=== PATIENT | male | born 1935 | race Caucasian/White ===

== ENCOUNTER 2018-04-21 02:56 | Inpatient (IN) | payer OTHER ==
[~2018-04-21] VITALS: Ht 177.8 cm; Wt 76.9 kg
[2018-04-21] VITALS (8 sets, daily range): BP systolic 116–141; BP diastolic 59–75; PULSE 54–103; TEMP 36.6–37.3; O2SAT 93–97; BMI 25.3
[~2018-04-21 02:56] MED LIST: ATEN50TA8 PO; CLR10 PO; SIMV80TA7 PO; TRAM-10 PO; ZOLP10TA PO
[2018-04-21] MEDS ORDERED: SODIUM CHLORIDE 0.9% 500ML 500 ML IV STA (03:16)
[2018-04-21] MEDS ORDERED: ONDANSETRON INJ 2 MG/ML 2 ML VIAL IV STA ×3 (03:16→06:02)
--- NOTE | 2018-04-21 03:24 | EMERGENCY ROOM VISIT NOTE ---
History First contact with patient: 03:09 Chief Complaint: ABDOMINAL PAIN Stated Complaint: LEG PAIN,ABD PAIN Nursing Triage Summary: pt reports started with R side abdominal pain around 1800 vomitted X 2 around 2100 denies radiation of pain, denies urinary sx History of Present Illness The patient is a 82 year old male who presents to the Emergency Room for evaluation of RLQ abdominal pain. Notes that for the last week he has been having pain in the RLQ. Gradually worsening. Nothing makes better nor worse. Movement doesn't change pain. Associated vomiting this evening. After vomiting he developed headache. Currently without pain but notes pain sometimes comes in waves. He took Tramadol earlier in the night with improvement in pain. Denies trauma, injuries, falls. Has had a bit of diarrhea the last few days. No cp, sob, neck pain, leg swelling, rashes, fevers, urinary symptoms. Denies previous issues with this pain. Previous rectal surgery and radiation for anal cancer. Review of Systems See HPI for pertinent positives & negatives. A total of 10 systems reviewed and were otherwise negative. Past Medical/Surgical History Medical Problems: (1) Cancer Surgical history: Rectal/anal cancer removal Family History Cancer Hypertension Social History Smoking Status: Former Smoker Alcohol Use: none Marital Status: Housing Status: lives with significant other Occupation Status: retired Current/Historical Medications Scheduled Atenolol (Tenormin), 50 MG PO DAILY Cholecalciferol (Vitamin D3), 1 CAP PO DAILY Fish Oil ([place]-3), 1 CAP PO DAILY Folic Acid (Folvite), 2 MG PO DAILY Loratadine (Claritin), 10 MG PO DAILY Simvastatin (Zocor), 40 MG PO QPM Scheduled PRN Polyethylene Glycol 3350 (Miralax), 17 GM PO DAILY PRN for Constipation Tramadol (Ultram), 50 MG PO Q4 PRN for Pain Zolpidem Tartrate (Ambien), 10 MG PO HS PRN for Sleep Physical Exam Vital Signs Date Time Temp Pulse Resp B/P (MAP) Pulse Ox O2 Delivery O2 Flow Rate FiO2 04/21/18 07:19 49 20 152/78 96 Room Air 04/21/18 06:34 50 18 158/80 95 Room Air 04/21/18 05:36 50 18 137/87 94 Room Air 04/21/18 04:19 63 20 163/76 96 Room Air 04/21/18 03:06 36.8 62 20 176/73 98 Room Air Physical Exam GENERAL: Patient is elderly appearing and in mild distress. he appears to have some mild dementia ( answers many of his questions) EYES: No scleral icterus, unremarkable pupils. ENT: Mucous membranes moist, no nasal congestion. NECK: No masses appreciated, no meningismus, trachea is midline. RESPIRATORY: No dyspnea. Clear to auscultation and equal bilaterally. No wheeze , no rhonchi. CARDIOVASCULAR: Regular rate and rhythm. No murmurs, rubs, gallops appreciated. GASTROINTESTINAL: Vague RLQ TTP otherwise, abdomen soft, nontender, no peritonitis. Bowel sounds positive. No masses appreciated. BACK: No midline tenderness, no CVA tenderness EXTREMITIES: Normal motion all extremities, no cyanosis, no edema. NEUROLOGIC: Alert and oriented, no acute motor or sensory deficits, no focal weakness, Talks out of left side of mouth though no facial droop nor other CN deficits. SKIN: No rash, no jaundice, no diaphoresis. Medical Decision & Procedures ER Provider Diagnostic Interpretation: Stat Rad Radiology results and stated below per my review and radiologist interpretation: CT HEAD: No acute intracranial process. Age-related changes. Sclerosis of the right mastoid air cells. Radiologist: Alma Rosa Barron M.D. CT ABDOMEN & PELVIS With Contrast: Small left inguinal hernia containing loop of small bowel on image 78 of series 2. The more proximal intra-abdominal small bowel loops are moderately dilated with air-fluid levels, consistent with secondary obstruction. Findings are concerning for incarceration. Correlate with clinical findings. The more distal small bowel loops are relatively decompressed. Diverticulosis. Normal appendix. No free air or fluid collections. Trace amount of free fluid. Large left renal cyst. Radiologist: Alma Rosa Barron M.D. Laboratory Results 04/21/18 03:25 Red Blood Count 4.58, Mean Corpuscular Volume 94.1, Mean Corpuscular Hemoglobin 31.7, Mean Corpuscular Hemoglobin Concent 33.6, Mean Platelet Volume 11.2, Neutrophils (%) (Auto) 80.0, Lymphocytes (%) (Auto) 12.8, Monocytes (%) (Auto) 6.3, Eosinophils (%) (Auto) 0.4, Basophils (%) (Auto) 0.3, Neutrophils # (Auto) 8.30, Lymphocytes # (Auto) 1.33, Monocytes # (Auto) 0.65, Eosinophils # (Auto) 0.04, Basophils # (Auto) 0.03 04/21/18 03:25 Test 04/21/18 03:25 04/21/18 03:29 04/21/18 07:09 White Blood Count 10.37 K/uL (4.8-10.8) Red Blood Count 4.58 M/uL (4.7-6.1) Hemoglobin 14.5 g/dL (14.0-18.0) Hematocrit 43.1 % (42-52) Mean Corpuscular Volume 94.1 fL (80-100) Mean Corpuscular Hemoglobin 31.7 pg (25-34) Mean Corpuscular Hemoglobin Concent 33.6 g/dl (32-36) Platelet Count 190 K/uL (130-400) Mean Platelet Volume 11.2 fL (7.4-10.4) Neutrophils (%) (Auto) 80.0 % Lymphocytes (%) (Auto) 12.8 % Monocytes (%) (Auto) 6.3 % Eosinophils (%) (Auto) 0.4 % Basophils (%) (Auto) 0.3 % Neutrophils # (Auto) 8.30 K/uL (1.4-6.5) Lymphocytes # (Auto) 1.33 K/uL (1.2-3.4) Monocytes # (Auto) 0.65 K/uL (0.11-0.59) Eosinophils # (Auto) 0.04 K/uL (0-0.5) Basophils # (Auto) 0.03 K/uL (0-0.2) RDW Standard Deviation 44.4 fL (36.4-46.3) RDW Coefficient of Variation 12.9 % (11.5-14.5) Immature Granulocyte % (Auto) 0.2 % Immature Granulocyte # (Auto) 0.02 K/uL (0.00-0.02) Prothrombin Time 10.2 SECONDS (9.0-12.0) Prothromb Time International Ratio 1.0 (0.9-1.1) Activated Partial Thromboplast Time 25.9 SECONDS (21.0-31.0) Partial Thromboplastin Ratio 1.0 Est Creatinine Clear Calc Drug Dose 59.2 ml/min Estimated GFR () 80.5 Estimated GFR (Non- 69.4 BUN/Creatinine Ratio 12.9 (10-20) Calcium Level 9.2 mg/dl (8.5-10.1) Magnesium Level 2.2 mg/dl (1.8-2.4) Total Bilirubin 0.8 mg/dl (0.2-1) Direct Bilirubin 0.2 mg/dl (0-0.2) Aspartate Amino Transf (AST/SGOT) 14 U/L (15-37) Alanine Aminotransferase (ALT/SGPT) 20 U/L (12-78) Alkaline Phosphatase 73 U/L (45-117) Total Protein 7.8 gm/dl (6.4-8.2) Albumin 4.0 gm/dl (3.4-5.0) Lipase 308 U/L (73-393) Bedside Hemoglobin 14.6 g/dl (14.0-18.0) Bedside Hematocrit 43 % (42-52) Bedside Sodium 142 mEq/L (135-144) Bedside Potassium 3.9 mEq/L (3.3-5.0) Bedside Chloride 98 mEq/L (101-112) Bedside Total CO2 32 mEq/l (24-31) Anion Gap 17.0 mmol/L (16-25) Bedside Blood Urea Nitrogen 13 mg/dl (7-18) Bedside Creatinine 1.0 mg/dl (0.6-1.3) Bedside Glucose (other) 137 mg/dl (70-99) Bedside Ionized Calcium (Miko) 1.13 mmol/l (1.12-1.32) Medications Administered Medications (Trade) Dose Ordered Sig/Moses Route Start Time Stop Time Status Last Admin Dose Admin Sodium Chloride 500 ml @ 999 mls/hr Q31M STAT IV 04/21/18 03:16 04/21/18 03:46 DC 04/21/18 03:22 999 MLS/HR Ondansetron HCl (Zofran Inj) 4 mg NOW STAT IV 04/21/18 03:16 04/21/18 03:19 DC 04/21/18 03:21 4 MG Ondansetron HCl (Zofran Inj) 4 mg NOW STAT IV 04/21/18 04:14 04/21/18 04:15 DC 04/21/18 04:17 4 MG Lorazepam (Ativan Inj) 0.25 mg NOW STAT IV 04/21/18 04:53 04/21/18 04:54 DC 04/21/18 05:01 0.25 MG Lorazepam (Ativan Inj) 0.5 mg NOW STAT IV 04/21/18 05:26 04/21/18 05:27 DC 04/21/18 05:32 0.5 MG Ondansetron HCl (Zofran Inj) 4 mg NOW STAT IV 04/21/18 06:02 04/21/18 06:03 DC 04/21/18 06:17 4 MG Medical Decision Differential: Gastroenteritis, Food Borne, Esophageal Perforation, , Electrolyte Abnormality, Dehydration, Intraabdominal Infection, UTI/ Pyelonephritis, Bowel Obstruction, Biliary Pathology, amongst other pathology entertained. 82 yr old male arrives with persistent vomiting over last few hours. He also notes some abdominal pain. Talking to him he is clearly a bit demented if not just very tired and I suspect has a bit of confusion as well. Abdominal exam with hyperactive bowel sounds though no tenderness. Continuous vomiting despite zofran, then ativan. Given NG Tube after my review of CT reveals obstruction. CXR with proper placement. Large NG outs as well as vomiting around tube. Continued nausea/vomiting and given further ativan. CT read as SBO with incarcerated left inguinal hernia. He has no mass nor TTP of LLQ nor inguinal area. Continued vomiting. Protecting airway. I discussed this with Dr Noonan who notes he will come evaluate patient further. KUB ordered to eval further and just prior to this he pulled out NG Tube. Tube ~10 cm too high though Dr Noonan at bedside and advised leaving it for now as going to go to OR. We discussed intubation but given he is protecting airway and finally falling asleep felt that holding off until OR is reasonable. Patient with many repeat evaluations throughout [facility]. 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 No other evidence of stroke and given clearly has SBO I thnk this is probably his baseline. He did mention headache after vomiting thus the CT head which was negative. Head Trauma GCS Score: 15 Medication Reconcilliation Current Medication List: was personally reviewed by me Blood Pressure Screening Patient's blood pressure: Normal blood pressure Impression Primary Impression: Incarcerated left inguinal hernia Additional Impressions: Small bowel obstruction Emesis, persistent I have personally spent greater than 30 minutes of critical care time in the direct management of this patient. This was a life/limb threatening event. This includes time spent evaluating patient, direct bedside care, chart review, placing orders, interpretation of diagnostic studies, discussion with consultants, patient, and family members, as well as other required patient management activities. This 30 minutes is in excess of all separately billable procedures. Departure Information Referrals Seamus Luna M.D. (PCP) Patient Instructions My [facility] Problem Qualifiers
[2018-04-21] MEDS ORDERED: OPTIRAY 320 IV PRN (03:30)
[2018-04-21 03:35] LABS: BASO % 0.3 %; BASO ABS # 0.03 K/uL (0-0.2); EOS % 0.4 %; EOS ABS # 0.04 K/uL (0-0.5); HEMATOCRIT 43.1 % (42-52); HEMOGLOBIN 14.5 g/dL (14.0-18.0); IG# 0.02 K/uL (0.00-0.02); LYMPH % 12.8 %; LYMPH ABS # 1.33 K/uL (1.2-3.4); MEAN CELL VOLUME 94.1 fL (80-100); MEAN CORPUSCULAR HEMOGLOBIN 31.7 pg (25-34); MEAN CORPUSCULAR HGB CONC 33.6 g/dl (32-36); MEAN PLATELET VOLUME 11.2 fL (7.4-10.4); MONO % 6.3 %; MONO ABS # 0.65 K/uL (0.11-0.59); PLATELET COUNT 190 K/uL (130-400); RED CELL DISTRIBUTION WIDTH CV 12.9 % (11.5-14.5); RED CELL DISTRIBUTION WIDTH SD 44.4 fL (36.4-46.3); WHITE BLOOD COUNT 10.37 K/uL (4.8-10.8)
[2018-04-21 03:44] LABS: ISTAT IONIZED CALCIUM 1.13 mmol/l (1.12-1.32); ISTAT POTASSIUM 3.9 mEq/L (3.3-5.0)
[2018-04-21] MEDS ORDERED: CHOL2000 PO (03:51)
[2018-04-21] MEDS ORDERED: FOLI1TAB8 PO (03:51)
[2018-04-21] MEDS ORDERED: POLY335019 PO (03:51)
[2018-04-21] MEDS ORDERED: OMEG10007 PO (03:51)
[2018-04-21 04:02] LABS: CALCIUM 9.2 mg/dl (8.5-10.1); CREATININE 1.01 mg/dl (0.60-1.40); POTASSIUM 3.8 mmol/L (3.5-5.1); PTT PATIENT 25.9 SECONDS (21.0-31.0); TOTAL PROTEIN 7.8 gm/dl (6.4-8.2)
[2018-04-21] MEDS ORDERED: LORAZEPAM 2 MG/ML 1 ML VIAL IV STA ×2 (04:53→05:26)
[2018-04-21] MEDS ORDERED: CEFAZOLIN 2000MG IV PUSH 15 ML IV SCH (06:00)
--- NOTE | 2018-04-21 07:00 | Surgery Consultation ---
Consultation Date of Consultation: Apr 21, 2018. Attending Physician: History of Present Illness pt is a 82 year old male who presents to ER with one week history lower abdominal pain, pt started with nausea and vomiting last 12 hours, pt's is at bed side, pt has mild dementia history, last BM yesterday, and also pt had diarrhea 3 days ago. pt denies fever, no chest pain, pt had dx anal cancer with radiation and chemo treatment 8 years ago. pt denies any bloody stool, Family History Cancer Hypertension Social History Smoking Status: Former Smoker Smokeless Tobacco Use: No Alcohol Use: none Drug Use: none Marital Status: Housing Status: lives with significant other Occupation Status: retired Allergies Coded Allergies: No Known Allergies (Unverified , 04/21/18) Home Medications Scheduled Atenolol (Tenormin), 50 MG PO DAILY Cholecalciferol (Vitamin D3), 1 CAP PO DAILY Fish Oil ([place]-3), 1 CAP PO DAILY Folic Acid (Folvite), 2 MG PO DAILY Loratadine (Claritin), 10 MG PO DAILY Simvastatin (Zocor), 40 MG PO QPM Scheduled PRN Polyethylene Glycol 3350 (Miralax), 17 GM PO DAILY PRN for Constipation Tramadol (Ultram), 50 MG PO Q4 PRN for Pain Zolpidem Tartrate (Ambien), 10 MG PO HS PRN for Sleep Current Inpatient Medications Current Inpatient Medications Medications (Trade) Dose Ordered Sig/Moses Route Start Time Stop Time Status Last Admin Dose Admin Ioversol (Optiray 320) 100 ml UD PRN IV 04/21/18 03:30 04/25/18 03:29 Review of Systems Constitutional: No fever, No chills, No sweats, No weight loss, No weakness, No fatigue, No problem reported Eyes: No worsening of vision, No eye pain, No redness, No discharge, No diplopia, No problem reported ENT: No hearing loss, No unusual epistaxis, No nasal symptoms, No sore throat, No tinnitus, No dental problems, No trouble swallowing, No problem reported Respiratory: No cough, No sputum, No wheezing, No shortness of breath, No dyspnea on exertion, No dyspnea at rest, No hemoptysis, No problem reported Cardiovascular: No chest pain, No orthopnea, No PND, No edema, No claudication , No palpitations, No problem reported Abdomen: + pain, + nausea, + vomiting, + problem reported (anal cancer) Musculoskeletal: No joint pain, No muscle pain, No swelling, No calf pain, No problem reported Genitourinary - Male: No hematuria, No dysuria, No urinary frequency, No urinary urgency, No urinary hesitancy, No urinary retention, No urinary incontinence, No penile discharge, No lesions, No impotence, No problem reported Neurologic: + memory loss, + problem reported (mild dementia), No paralysis, No weakness, No numbness/tingling, No vertigo, No balance problems Psychiatric: No depression symptoms, No anhedonism, No anxiety, No insomnia, No substance abuse, No problem reported Endocrine: No fatigue, No excessive thirst, No excessive urination, No problem reported Hematologic / Lymphatic: No abnormal bleeding/bruising, No clotting problems, No swollen lymph nodes, No night sweats, No problem reported Integumentary: No rash, No itch, No new/changing skin lesions, No color change , No bleeding, No problem reported Allergic / Immunologic: No environmental allergies, No seasonal allergies, No pet sensitivities, No food allergies, No hives, No frequent infections, No poor healing, No prolonged convalescence, No problem reported Physical Exam Date Time Temp Pulse Resp B/P (MAP) Pulse Ox O2 Delivery O2 Flow Rate FiO2 04/21/18 05:36 50 18 137/87 94 Room Air 04/21/18 04:19 63 20 163/76 96 Room Air 04/21/18 03:06 36.8 62 20 176/73 98 Room Air General Appearance: WD/WN, + mild distress Head: normocephalic Eyes: normal inspection ENT: normal ENT inspection Neck: supple, no JVD Respiratory/Chest: chest non-tender, lungs clear, normal breath sounds, no respiratory distress Cardiovascular: regular rate, rhythm, no edema, no gallop, no JVD, no murmur Abdomen/GI: normal bowel sounds, soft, no pulsatile mass, normal rectal exam, + tenderness (at LLQ, possible mass on Left inguinal area, size 3x3cm, not reducible) Extremities/Musculoskelatal: normal inspection, no calf tenderness, normal capillary refill Neurologic/Psych: alert, normal mood/affect Skin: normal color, warm/dry, no rash Lymphatic: no adenopathy Laboratory Results Last 24 Hours Test 04/21/18 03:25 04/21/18 03:29 White Blood Count 10.37 K/uL Red Blood Count 4.58 M/uL Hemoglobin 14.5 g/dL Hematocrit 43.1 % Mean Corpuscular Volume 94.1 fL Mean Corpuscular Hemoglobin 31.7 pg Mean Corpuscular Hemoglobin Concent 33.6 g/dl Platelet Count 190 K/uL Mean Platelet Volume 11.2 fL Neutrophils (%) (Auto) 80.0 % Lymphocytes (%) (Auto) 12.8 % Monocytes (%) (Auto) 6.3 % Eosinophils (%) (Auto) 0.4 % Basophils (%) (Auto) 0.3 % Neutrophils # (Auto) 8.30 K/uL Lymphocytes # (Auto) 1.33 K/uL Monocytes # (Auto) 0.65 K/uL Eosinophils # (Auto) 0.04 K/uL Basophils # (Auto) 0.03 K/uL RDW Standard Deviation 44.4 fL RDW Coefficient of Variation 12.9 % Immature Granulocyte % (Auto) 0.2 % Immature Granulocyte # (Auto) 0.02 K/uL Prothrombin Time 10.2 SECONDS Prothromb Time International Ratio 1.0 Activated Partial Thromboplast Time 25.9 SECONDS Partial Thromboplastin Ratio 1.0 Sodium Level 139 mmol/L Potassium Level 3.8 mmol/L Chloride Level 103 mmol/L Carbon Dioxide Level 31 mmol/L Anion Gap 5.0 mmol/L 17.0 mmol/L Blood Urea Nitrogen 13 mg/dl Creatinine 1.01 mg/dl Est Creatinine Clear Calc Drug Dose 59.2 ml/min Estimated GFR () 80.5 Estimated GFR (Non- 69.4 BUN/Creatinine Ratio 12.9 Random Glucose 132 mg/dl Calcium Level 9.2 mg/dl Magnesium Level 2.2 mg/dl Total Bilirubin 0.8 mg/dl Direct Bilirubin 0.2 mg/dl Aspartate Amino Transf (AST/SGOT) 14 U/L Alanine Aminotransferase (ALT/SGPT) 20 U/L Alkaline Phosphatase 73 U/L Total Protein 7.8 gm/dl Albumin 4.0 gm/dl Lipase 308 U/L Bedside Hemoglobin 14.6 g/dl Bedside Hematocrit 43 % Bedside Sodium 142 mEq/L Bedside Potassium 3.9 mEq/L Bedside Chloride 98 mEq/L Bedside Total CO2 32 mEq/l Bedside Blood Urea Nitrogen 13 mg/dl Bedside Creatinine 1.0 mg/dl Bedside Glucose (other) 137 mg/dl Bedside Ionized Calcium (Miko) 1.13 mmol/l Assessment & Plan CT ABDOMEN & PELVIS With Contrast: Small left inguinal hernia containing loop of small bowel on image 78 of series 2. The more proximal intra-abdominal small bowel loops are moderately dilated with air-fluid levels, consistent with secondary obstruction. Findings are concerning for incarceration. Correlate with clinical findings. The more distal small bowel loops are relatively decompressed. Diverticulosis. Normal appendix. No free air or fluid collections. Trace amount of free fluid. Large left renal cyst. Assessment: pt is a 82 year old male who presents to Er with 1 week history abdominal pain with nausea and vomiting, CT scan dx incarcerated left inguinal hernia, IMP: incarcerated left inguinal hernia, Plan, I recommend to do emergent open repair incarcerated left inguinal hernia possible with mesh, possible exploratory laparotomy, possible bowel resection, or stoma, D/W benefits, risks and alternatives of the surgery with pt's , the risks- infection, bleeding, anastomotic leak, hernia recurrence, VT, DVT, stroke and , pt's understood, she agrees with the surgery, she signed inform consent, I answered all questions,
--- NOTE | 2018-04-21 07:05 | DIAGNOSTIC IMAGING REPORT ---
KUB CLINICAL HISTORY: Vomiting, persistent despite NG tube. COMPARISON STUDY: CT of the abdomen and pelvis April 21, 2018. FINDINGS: Tip of nasogastric tube is within the distal esophagus. The tube could be advanced 8 cm to reach the body of stomach. Contrast within the collecting system is from recent contrast-enhanced CT. Several loops of mildly dilated small bowel are noted. IMPRESSION: 1. Tip of nasogastric tube projects over the distal esophagus. The tube could be advanced 8 cm to reach the body of the stomach. 2. Persistent small bowel dilatation which suggests a small bowel obstruction Electronically signed by: Stanton Barnett M.D. 04/21/2018 7:03 AM Dictated Date/Time: 04/21/2018 7:00 AM
--- NOTE | 2018-04-21 07:14 | DIAGNOSTIC IMAGING REPORT ---
CHEST ONE VIEW PORTABLE CLINICAL HISTORY: NG tube, vomiting. COMPARISON STUDY: No previous studies for comparison. FINDINGS: Tip of nasogastric tube is below lower aspect of image but at least within the body of the stomach. Cardiac size is top normal. There is no evidence for pulmonary edema. Linear left basilar opacity suggest atelectasis. There is no consolidation to suggest pneumonia. IMPRESSION: 1. Tip of nasogastric tube below lower aspect of image but at least within the body of the stomach. 2. Left basilar opacity suggestive of atelectasis. Electronically signed by: Stanton Barnett M.D. 04/21/2018 7:13 AM Dictated Date/Time: 04/21/2018 7:12 AM
--- NOTE | 2018-04-21 07:16 | DIAGNOSTIC IMAGING REPORT ---
CT OF THE HEAD WITHOUT CONTRAST CLINICAL HISTORY: Right lower facial weakness. COMPARISON STUDY: No previous studies for comparison. CT DOSE: 614.27 mGy.cm TECHNIQUE: Helical axial images of the head were obtained without IV contrast. Automated exposure control was utilized for the study. A dose lowering technique was utilized adhering to the principles of ALARA. FINDINGS: No acute intracranial hemorrhage, midline shift or mass effect is present. Ventricular system is normal for age. Basilar cisterns are patent. There are no extra-axial collections. White matter hypodensity suggests small vessel disease. There are no findings to suggest acute dural sinus thrombosis or acute territorial infarct. Asymmetric sclerosis of the right mastoid air cells with diminished aeration is noted. There are no significant calvarial abnormalities. IMPRESSION: No acute intracranial findings. Electronically signed by: Stanton Barnett M.D. 04/21/2018 7:15 AM Dictated Date/Time: 04/21/2018 7:13 AM
--- NOTE | 2018-04-21 07:22 | DIAGNOSTIC IMAGING REPORT ---
CT OF THE ABDOMEN AND PELVIS WITH CONTRAST CLINICAL HISTORY: Right lower quadrant abdominal pain. COMPARISON STUDY: CT of the abdomen and pelvis April 30, 2014. TECHNIQUE: Following IV administration of 91 mL of Optiray-320, axial images of the abdomen and pelvis were obtained from the lung bases to the proximal femurs. Images were reviewed in the axial, sagittal, and coronal planes. IV contrast was administered without complication. A dose lowering technique was utilized adhering to the principles of ALARA. CT DOSE: 404.75 mGy.cm FINDINGS: The liver, spleen, adrenal glands and pancreas are unremarkable. Note is made of a 5.4 cm left renal cyst. A few subcentimeter right renal lesions are too small to characterize. There is no hydronephrosis. The mid small bowel is mildly dilated and fluid-filled. A left inguinal hernia contains a loop of small bowel. The small bowel proximal to the hernia is dilated. The small bowel distal to the hernia is compressed and therefore this hernia results in a bowel obstruction. The appendix is normal. There is moderate atherosclerotic plaque of the abdominal aorta. Extensive sigmoid diverticulosis is noted without evidence for acute diverticulitis. There are no suspicious osseous lesions. Sclerotic lesions within the pelvis are unchanged and therefore benign. A small amount of ascites is noted. No pneumatosis, free air or portal venous gas is present. IMPRESSION: Left inguinal hernia which contains a loop of small bowel and results in a small bowel obstruction. Small bowel proximal to the hernia is mildly dilated and fluid-filled and small bowel distal to the hernia is decompressed. Small amount of ascites. Surgical consultation is recommended. Electronically signed by: Stanton Barnett M.D. 04/21/2018 7:21 AM Dictated Date/Time: 04/21/2018 7:15 AM
[2018-04-21] MEDS ORDERED: FENTANYL CITRATE INJ 50 MCG/1 ML 2 ML VIAL ONE ×3 (07:36→09:43)
[2018-04-21] MEDS ORDERED: BUPIVACAINE 0.5 % 5 MG/1 ML PF 10ML VIAL ONE (07:41)
[2018-04-21] MEDS ORDERED: LIDOCAINE HCL 1% 20 ML VIAL ONE (07:41)
[2018-04-21] MEDS ORDERED: SUCCINYLCHOLINE 100MG/5ML SYR IV ONE (07:42)
[2018-04-21] MEDS ORDERED: LIDOCAINE HCL 2% 2 ML VIAL (20MG/ML) ONE ×2 (07:42)
[2018-04-21] MEDS ORDERED: ROCURONIUM BROMIDE 10 MG/ML 5 ML VIAL ONE (07:42)
[2018-04-21] MEDS ORDERED: PROPOFOL IV EMULSION 10 MG/ML 20 ML VIAL ONE (07:42)
[2018-04-21] MEDS ORDERED: ATROPINE SULFATE 0.1 MG/ML 5ML SYR IV PRN (07:45)
[2018-04-21] MEDS ORDERED: MEPERIDINE HCL 25 MG/ML CARP IV PRN (07:45)
[2018-04-21] MEDS ORDERED: HYDROmorphone INJ 2 MG/ML SYR/VIAL IV PRN (07:45)
[2018-04-21] MEDS ORDERED: NALOXONE HCL 0.4 MG/1 ML VIAL/CARP IV PRN (07:45)
[2018-04-21] MEDS ORDERED: EpHEDrine SULFATE INJ 50 MG/ML AMP IV PRN (07:45)
[2018-04-21] MEDS ORDERED: ONDANSETRON INJ 2 MG/ML 2 ML VIAL IV PRN ×2 (07:45→09:30)
[2018-04-21] MEDS ORDERED: FLUMAZENIL 0.1 MG/1 ML 10 ML VIAL IV PRN (07:45)
[2018-04-21] MEDS ORDERED: LABETALOL HCL IV 5 MG/ML 20ML IV PRN (07:45)
[2018-04-21] MEDS ORDERED: PHENYLEPHRINE 100MCG/ML 5ML SYR IV PRN (07:45)
--- NOTE | 2018-04-21 08:04 | History & Physical Bridge Note ---
H&P Re-Evaluation Bridge Note: I have examined the patient, reviewed the History & Physical and in the interval since the performance of the History & Physical I have noted the following changes of clinical significance: No changes noted
[2018-04-21] MEDS ORDERED: BACITRACIN OINT 15 GM TUBE ONE (08:43)
[2018-04-21] MEDS ORDERED: ONDANSETRON INJ 2 MG/ML 2 ML VIAL ONE (08:55)
[2018-04-21] MEDS ORDERED: GLYCOPYRROLATE INJ 0.2 MG/ML VIAL ONE ×2 (09:19→09:20)
[2018-04-21] MEDS ORDERED: NEOSTIGMINE METHYLSULFATE 5 MG/5 ML SYR ONE (09:20)
--- NOTE | 2018-04-21 09:23 | [facility] Post Operative Brief Note ---
Immediate Operative Summary Operative Date Apr 21, 2018. Pre-Operative Diagnosis Left Incarcerated Inguina Hernia Post-Operative Diagnosis Left Incarcerated Inguina Hernia Procedure(s) Performed Left Incarcerated Inguina Hernia Repair with mesh Surgeon Dr Noonan Ventilated Rib Fitter Surgeon(s) manometer technician Estimated Blood Loss 5ml Findings Consistent with Post-Op Diagnosis incarcerated left indiect inguinal hernia Fluids (cc crystalloids) 1100ml Specimens none Drains None Anesthesia Type General Complication(s) none Disposition Accompanied Pt To Recover: yes Disposition: Recovery Room / PACU
[2018-04-21] MEDS ORDERED: OXYCODONE/ACETAMINOPHEN 5-325 TAB PO PRN (09:30)
[2018-04-21] MEDS ORDERED: HYDROmorphone INJ 0.5 MG/0.5 ML SYR IV PRN (09:30)
[2018-04-21] MEDS: FENTANYL CITRATE INJ 50 MCG/1 ML 2 ML VIAL IV PRN ×4 (09:57→10:22)
[2018-04-21] MEDS ORDERED: NURSING VERBAL MED ORDER ONE (10:10)
[2018-04-21] MEDS ORDERED: LORAZEPAM 2 MG/ML 1 ML VIAL ONE (10:11)
[2018-04-21] MEDS ORDERED: HYDROmorphone INJ 1 MG/ML SYR ONE (10:24)
--- NOTE | 2018-04-21 10:36 | Anesthesiology Progress Note ---
Anesthesia Post Op Note Date & Time Apr 21, 2018 at 10:36 Vital Signs Pain Intensity: 0 Vital Signs Past 12 Hours Date Time Temp Pulse Resp B/P (MAP) Pulse Ox O2 Delivery O2 Flow Rate FiO2 04/21/18 09:36 36.5 79 23 129/79 100 Oxymask 10 04/21/18 07:19 49 20 152/78 96 Room Air 04/21/18 06:34 50 18 158/80 95 Room Air 04/21/18 05:36 50 18 137/87 94 Room Air 04/21/18 04:19 63 20 163/76 96 Room Air 04/21/18 03:06 36.8 62 20 176/73 98 Room Air Notes Mental Status: alert / awake / arousable, participated in evaluation Pt Amnestic to Procedure: Yes Nausea / Vomiting: adequately controlled Pain: adequately controlled Airway Patency, RR, SpO2: stable & adequate BP & HR: stable & adequate Hydration State: stable & adequate Anesthetic Complications: no major complications apparent The patient did well. His vitals are at baseline. He has dementia as his baseline and is awake and back to baseline in PACU.
[2018-04-21] MEDS ORDERED: LORAZEPAM INJ 0.5 MG in SYRINGE 0.75 ML IV PRN (11:30)
[2018-04-21] MEDS ORDERED: ASTN (11:40)
[2018-04-21] MEDS: D5W AND 1/2NSS + 20MEQ KCL 1,000 ML IV SCH ×2 (12:05→21:06)
[2018-04-21] MEDS: LORAZEPAM 2 MG/ML 1 ML VIAL IV PRN (12:05)
--- NOTE | 2018-04-21 12:13 | Medical Consult ---
Consultation Date of Consultation: Apr 21, 2018. 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 Patient currently lying in bed postoperative drowsy state, history provided mostly by his who is at bedside. She notes patient has been complaining of left lower abdominal pain for the past 3 days, waxed and waned, worsened last evening , awoke at 130 this morning in which he requested to seek ED. He had episode of emesis this a.m., few episodes of diarrhea 3 days ago. Last BM was yesterday. He did not complain of any f/c/s, lightheaded, dizzy, chest pain, shortness of breath, nausea. Appetite had been normal. unsure if patient had any melena , hematochezia, dark tarry stools. Prior to admisson patient is very active in which he cares for , has 1 acre property which he takes care of and was out working in yard yesterday. Never been hospitalized in the past. In ED CT scan of abdomen showed small bowel obstruction secondary to incarcerated left inguinal hernia. Dr. Noonan evaluated the patient, NG tube place, patient taken to the OR for repair of left inguinal hernia. He tolerated the procedure well. He is resting in bed comfortably denies any current pain, abdominal pain, nausea, vomiting. ROS limited secondary to postop sedation. We have been consulted for medical management. Past Medical/Surgical History Medical Problems: (1) Chronic rhinitis Status: Chronic (2) Mild Senile Dementia Status: Chronic (3) HLD (hyperlipidemia) Status: Chronic (4) HTN (hypertension) Status: Chronic (5) Insomnia Status: Chronic (6) Squamous cell cancer, anus Permanent Comment: 8 years ago, no recurrence. Follows surgery in [place] Status: Resolved Surgical History None noted, patient never hospitalized in past Family History Cancer FH: CAD (coronary artery disease) FATHER, , Onset:63 () FH: lymphoma SISTER, , Onset:60 years & older () Hypertension Social History Smoking Status: Former Smoker (quit 1994, 40pack year hx) Smokeless Tobacco Use: No Alcohol Use: none Drug Use: none Marital Status: Housing Status: lives with significant other Occupation Status: retired Allergies Coded Allergies: No Known Allergies (Unverified , 04/21/18) Home Medications Reported Home Medications Medications Dose Route/Sig Max Daily Dose Days Date Category Dose Instructions Astelin Nasal [place] (Azelastine Hcl) 200 Sprays/30 Ml [place] 1-2 Sprays NA BID 04/21/18 Reported Folvite (Folic Acid) 1 Mg Tab 2 Mg PO DAILY 04/21/18 Reported Vitamin D3 (Cholecalciferol) 2,000 Unit Cap 1 Cap PO DAILY 04/21/18 Reported [place]-3 (Fish Oil) 1 Ea Cap 1 Cap PO DAILY 04/21/18 Reported Ambien (Zolpidem Tartrate) 5 Mg Tab 5 Mg PO HS PRN 12/19/14 Reported Zocor (Simvastatin) 80 Mg Tab 40 Mg PO QPM 12/19/14 Reported 1/2 80MG TAB Ultram (Tramadol HCl) 50 Mg Tab 50 Mg PO Q6 PRN 12/19/14 Reported Claritin (Loratadine) 10 Mg Tab 10 Mg PO DAILY 12/19/14 Reported Tenormin (Atenolol) 50 Mg Tab 50 Mg PO DAILY 12/19/14 Reported Current Inpatient Medications Current Inpatient Medications Medications (Trade) Dose Ordered Sig/Moses Route Start Time Stop Time Status Last Admin Dose Admin Ioversol (Optiray 320) 100 ml UD PRN IV 04/21/18 03:30 04/25/18 03:29 Hydromorphone HCl (Dilaudid Inj) 0.5 mg Q5M PRN IV 04/21/18 07:45 04/21/18 12:45 Fentanyl Citrate (Fentanyl Inj) 25 mcg Q5M PRN IV 04/21/18 07:45 04/21/18 12:45 04/21/18 10:22 25 MCG Naloxone HCl (Narcan Inj) 0.2 mg Q2M PRN IV 04/21/18 07:45 04/21/18 12:45 Meperidine HCl (Demerol Inj) 12.5 mg Q5M PRN IV 04/21/18 07:45 04/21/18 12:45 Ondansetron HCl (Zofran Inj) 4 mg ONE PRN IV 04/21/18 07:45 04/21/18 12:45 Flumazenil (Romazicon Inj) 0.2 mg Q2M PRN IV 04/21/18 07:45 04/21/18 12:45 Labetalol HCl (Normodyne IV) 5 mg Q5M PRN IV 04/21/18 07:45 04/21/18 12:45 Ephedrine Sulfate (EpHEDrine SULFATE INJ) 5 mg Q5M PRN IV 04/21/18 07:45 04/21/18 12:45 Atropine Sulfate (Atropine Sulfate 0.1mg/ml Inj) 0.5 mg Q1M PRN IV 04/21/18 07:45 04/21/18 12:45 Phenylephrine HCl (Jhonny-Synephrine 500MCG/5ML Syr) 100 mcg Q5M PRN IV 04/21/18 07:45 04/21/18 12:45 Potassium Chloride/Dextrose/ Sod Cl 1,000 ml @ 100 mls/hr Q10H IV 04/21/18 11:30 05/21/18 11:29 Ondansetron HCl (Zofran Inj) 4 mg Q4H PRN IV 04/21/18 09:30 05/21/18 09:29 Acetaminophen (Tylenol Tab) 650 mg Q6H PRN PO 04/21/18 09:30 05/21/18 09:29 Oxycodone/ Acetaminophen (Percocet 5-325mg Tab) 1 tab Q4H PRN PO 04/21/18 09:30 05/05/18 09:29 Hydromorphone HCl (Dilaudid Inj) 0.5 mg Q3H PRN IV 04/21/18 09:30 05/05/18 09:29 Enoxaparin Sodium (Lovenox Inj) 40 mg QAM SQ 04/22/18 09:00 05/22/18 08:59 Cefazolin Sodium 15 ml @ 3.75 mls/ min PREOP IV 04/21/18 06:00 04/21/18 12:00 Lorazepam 0.5 mg/ Syringe 1 ml @ 1 mls/min Q8H PRN IV 04/21/18 11:30 05/21/18 11:29 Lorazepam (Ativan Inj) 0.5 mg Q8H PRN IV 04/21/18 11:30 05/21/18 11:29 Review of Systems As noted per HPI, ROS limited secondary to post op drowsiness. 10 systems reviewed and negative unless noted above. Physical Exam Date Time Temp Pulse Resp B/P (MAP) Pulse Ox O2 Delivery O2 Flow Rate FiO2 04/21/18 11:00 62 18 143/68 98 Nasal Cannula 2 04/21/18 10:45 36.5 69 23 127/65 98 Nasal Cannula 2 04/21/18 10:35 81 18 114/86 97 Nasal Cannula 2 04/21/18 10:25 79 18 164/90 93 Nasal Cannula 2 04/21/18 10:15 68 16 135/75 94 Nasal Cannula 2 04/21/18 10:10 136/70 04/21/18 10:05 74 22 96 Nasal Cannula 2 04/21/18 10:00 148/78 04/21/18 09:55 79 17 97 Oxymask 10 04/21/18 09:45 79 17 136/81 100 Oxymask 10 04/21/18 09:36 36.5 79 23 129/79 100 Oxymask 10 04/21/18 07:19 49 20 152/78 96 Room Air 04/21/18 06:34 50 18 158/80 95 Room Air 04/21/18 05:36 50 18 137/87 94 Room Air 04/21/18 04:19 63 20 163/76 96 Room Air 04/21/18 03:06 36.8 62 20 176/73 98 Room Air Vital Signs Label Value Date Time Patient Temperature 36.5 C. 04/21/18 1045 Temperature Source Temporal Artery 04/21/18 1045 Pulse 62 04/21/18 1100 Location Apical Rhythm Regular Respiratory Rate 18 04/21/18 1100 Blood Pressure Assessment 143/68 04/21/18 1100 Location Left Arm Source NIBP Bedside Pulse Oximetry 98 % 04/21/18 1100 Item Value Date Time Oxygen Flow Rate 2 L/min 04/21/18 1100 Oxygen Delivery Method Nasal Cannula 04/21/18 1100 General Appearance: WD/WN (Male, lying in bed, very drowsy but answers yes/no) , no apparent distress Head: normocephalic, atraumatic Eyes: normal inspection, sclerae normal ENT: hearing grossly normal, + pertinent finding (mucous membranes moist) Neck: supple, trachea midline Respiratory/Chest: chest non-tender, lungs clear, normal breath sounds, no respiratory distress, no accessory muscle use Cardiovascular: regular rate, rhythm, no edema, no gallop, no JVD, no murmur, normal peripheral pulses Abdomen/GI: normal bowel sounds, non tender, soft, + pertinent finding (+ L inguinal incision CDI, dressing CDI) Extremities/Musculoskelatal: normal inspection, normal capillary refill, no pedal edema Neurologic/Psych: alert, + pertinent finding (very drowsy secondary to medications, answers yes/no) Skin: normal color, warm/dry, no rash Laboratory Results Item Value Date Time White Blood Count 10.37 K/uL 04/21/18 0325 Hemoglobin 14.5 g/dL 04/21/18 0325 Hematocrit 43.1 % 04/21/18 0325 Platelet Count 190 K/uL 04/21/18 0325 Bedside Sodium 142 mEq/L 04/21/18 0329 Bedside Potassium 3.9 mEq/L 04/21/18 0329 Bedside Chloride 98 mEq/L L 04/21/18 0329 Bedside Total CO2 32 mEq/l H 04/21/18 0329 Blood Urea Nitrogen 13 mg/dl 04/21/18 0325 Creatinine 1.01 mg/dl 04/21/18 0325 Bedside Glucose (other) 137 mg/dl H 04/21/18 0329 Lactic Acid Level 1.5 mmol/L 04/21/[address] ABDOMEN: IMPRESSION: Left inguinal hernia which contains a loop of small bowel and results in a small bowel obstruction. Small bowel proximal to the hernia is mildly dilated and fluid-filled and small bowel distal to the hernia is decompressed. Small amount of ascites. Surgical consultation is recommended. 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 CT scan of abdomen revealed incarcerated left inguinal hernia with subsequent small bowel obstruction. NG tube placed, surgical consultation by Dr. Noonan resulted in operative repair left inguinal hernia. We have been consulted for postoperative medical management. Incarcerated left inguinal hernia with subsequent small bowel obstruction s/p post left inguinal hernia repair -Continue pain/wound management per Dr. Noonan -Strict NPO -Lovenox for VTE prophylaxis -IVF per Dr. Noonan -Hold all medications, prn labetalol 5mg for SBP >160 DBP >100 -Monitor on telemetry -cbc, cmp, mag in a.m. -ECG in a.m. HTN blood pressure controlled -Atenolol 50mg on hold secondary to NPO -PRN labetalol for HTN HLD -on simvastatin 40mg daily, on hold. INSOMINA -takes Ambien 5mg at HS CHRONIC RHINITIS -loratadine, azelastine nasal spray Hx of SQUAMOUS CELL CA OF ANUS WITHOUT RECURRENCE -dx and treated 8 years prior -follows general surgery in [place] MILD SENILE DEMENTIA -monitor, may be exacerbated by post op delirium. -prn lorazepam ordered Thank you for this consultation. We will follow the patient with you during their hospital stay. You can reach a member of the [facility] Hospitalist Team 02/04 via pager @ . will follow up the patient while hospitalized starting tomorrow () Attending Note Attending Note: Patient is an 82 yr male with H/o Squamous cell carcinoma of anus and other problems presents with history of LLQ abdominal pain, nausea, vomiting and Imaging studies were suggestive of Incarcerated left Inguinal hernia and Small bowel obstruction. Patient had emergent Left Incarcerated Inguinal Hernia Repair with mesh by . Patient was seen and examined post OP. Patient was drowsy and was not able to provide any history. Most of information is obtained from patient's and hospital records. No known H/O fever, chills, chest pain , SOB, bloody bowel movements. He had diarrhea 3 days ago and last BM was yesterday. He has been having abdominal pain since last 5 days as per patient's . Physical Exam: Vitals signs as noted above General Appearance:Moderately built and nourished, no apparent distress, Drowsy Head: normocephalic, Atraumatic Eyes: normal inspection, EOMI, PERRL Neck: supple, Trachea midline Respiratory/Chest: Normal breath sounds, CTA Cardiovascular: S1, S2, No murmur Abdomen/GI:Soft, Non tender, Bowel sounds diminished, Left Inguinal region in surgical dressing Extremities/Musculoskelatal:normal inspection, no edema Neurologic/Psych:grossly no focal neurological deficits Skin:normal color,warm Assessment and Plan: Incarcerated left inguinal hernia and small bowel obstruction S/P Left Incarcerated Inguinal Hernia Repair with mesh by POD # 0 NPO for now Continue IV fluids Pain control monitor for post OP anemia DVT Px per Surgical team Reorient frequently to prevent delirium given H/O Dementia HTN: Stable Resume PO meds as able I personally reviewed the record. Patient is interviewed and examined at bedside. Patient's care is coordinated with Fidelina Pina PA-C. Please refer to the documentation above for details of patient's presentation and for discussion of other issues.
--- NOTE | 2018-04-21 12:32 | OPERATIVE REPORT ---
DATE OF OPERATION: 04/21/2018 PREOPERATIVE DIAGNOSIS: Incarcerated left inguinal hernia. POSTOPERATIVE DIAGNOSIS: Incarcerated left inguinal hernia. OPERATION: Open repair incarcerated left inguinal hernia with mesh. SURGEON: Navid Noonan MD ANESTHESIA: General. ESTIMATED BLOOD LOSS: About 5 mL. FINDINGS: Incarcerated left indirect inguinal hernia. COMPLICATIONS: None. INDICATIONS FOR THE PROCEDURE: This is an 82 years old gentleman who presented to the ED with 1 week history of abdominal pain with nausea, vomiting and the patient had a CT scan diagnosis of incarcerated left inguinal hernia. I recommend to do the Emergency open repair of left inguinal hernia, possibly with mesh, possible exploratory laparotomy, possible bowel resection, stoma. I did talk to the patient and patient's about the benefit and risk, alternate procedure. I indicated the risks may include but not limited such as the bleeding, infection, hernia recurrence, sepsis, myocardial infarction, DVT, stroke, even . They understand. The patient's signed informed consent. She agreed to proceed with the procedure. I answered all questions. DETAILS OF PROCEDURE: We brought the patient to the OR and put the patient in the supine position. The patient received SCD on bilateral legs to prevent DVT. Also, the patient received 2 grams of Ancef IV for prophylactic antibiotic. The patient received general anesthesia without difficulty and the patient received Gonzalez catheter insertion. The abdomen was prepped and draped in routine sterile fashion. After time out, I injected the local anesthesia by using 1% lidocaine mixed with 0.5% Marcaine around the left inguinal area. I made about a 4 cm on the left inguinal area and exposed the external oblique, opened the external oblique, and mobilized the cord structure; however, we found the patient had incarcerated left indirect inguinal hernia and completely reduced the hernia back to the abdominal cavity. Once we mobilized the hernia sac, no signs of ischemic bowel at this moment. Once we reduced the hernia sac back to the abdominal cavity, I used the large plug to block the hernia opening, reversed the hernia sac to the abdominal cavity. Then, I chose a 2-0 Prolene to close the hernia neck interrupted suture and then we chose a 3 x 5 cm Prolene mesh, reinforced the posterior wall. Then, I used 2-0 Prolene mesh to left inguinal ligament with continued running for lateral and for medial used the 2-0 Prolene mesh to conjoined tendon continuous running, two sutures meeting together tied and hemostasis obtained. The mesh seated nicely, no tension, and also during procedure we identified the nerves for protection of nerves at all times. Then I used 2-0 Vicryl, closed the external oblique continuous running, closed the subcutaneous layer by using 4-0 Vicryl continuous running, closed the skin by using 4-0 Vicryl continuous running. We put the dressing on. The patient tolerated the procedure well. All the instrument, needle, and sponge count were correct x2 at the end of case. The patient transferred to recovery room in stable condition. After procedure, I did talk to the patient's about the OR finding and procedure we did, she understands. I attest to the content of the Intraoperative Record and any orders documented therein. Any exceptions are noted below. HANNA
[2018-04-22] VITALS (7 sets, daily range): BP systolic 112–139; BP diastolic 52–67; PULSE 52–68; TEMP 36.4–37.6; O2SAT 91–95; Ht 177.8 cm; Wt 76.9 kg
[2018-04-22] MEDS ORDERED: CEFAZOLIN SOD 2000MG/15 ML IV PUSH IV ONE (06:00)
[2018-04-22 06:14] LABS: BASO % 0.2 %; BASO ABS # 0.02 K/uL (0-0.2); EOS % 0.4 %; EOS ABS # 0.04 K/uL (0-0.5); HEMATOCRIT 37.1 % (42-52); HEMOGLOBIN 12.5 g/dL (14.0-18.0); IG# 0.02 K/uL (0.00-0.02); LYMPH % 15.9 %; LYMPH ABS # 1.41 K/uL (1.2-3.4); MEAN CELL VOLUME 94.9 fL (80-100); MEAN CORPUSCULAR HGB CONC 33.7 g/dl (32-36); MEAN PLATELET VOLUME 10.5 fL (7.4-10.4); MONO % 10.8 %; MONO ABS # 0.96 K/uL (0.11-0.59); NEUT % 72.5 %; NEUT ABS # 6.44 K/uL (1.4-6.5); PLATELET COUNT 154 K/uL (130-400); RED CELL DISTRIBUTION WIDTH CV 13.1 % (11.5-14.5); RED CELL DISTRIBUTION WIDTH SD 45.2 fL (36.4-46.3); WHITE BLOOD COUNT 8.89 K/uL (4.8-10.8)
[2018-04-22] MEDS: D5W AND 1/2NSS + 20MEQ KCL 1,000 ML IV SCH (06:48)
[2018-04-22 06:54] LABS: ALBUMIN 3.2 gm/dl (3.4-5.0); CALCIUM 8.3 mg/dl (8.5-10.1); CREATININE 0.87 mg/dl (0.60-1.40); POTASSIUM 3.6 mmol/L (3.5-5.1); TOTAL PROTEIN 6.4 gm/dl (6.4-8.2)
--- NOTE | 2018-04-22 07:08 | DIAGNOSTIC IMAGING REPORT ---
KUB CLINICAL HISTORY: SBO distention COMPARISON STUDY: 04/21/2018 FINDINGS: Limited exam due to pelvic adenopathy. The upper abdominal bowel pattern is nonobstructive. Nasogastric tube has been removed. IMPRESSION: Interval removal of the nasogastric tube. Nonobstructive abdominal small bowel pattern. The above report was generated using voice recognition software. It may contain grammatical, syntax or spelling errors. Electronically signed by: Fredis Pedro M.D. 04/22/2018 7:07 AM Dictated Date/Time: 04/22/2018 7:05 AM
[2018-04-22] MEDS: ENOXAPARIN 40 MG/0.4 ML SYR SQ SCH (08:17)
--- NOTE | 2018-04-22 10:18 | Hospitalist Progress Note ---
Hospitalist Progress Note Date of Service Apr 22, 2018. (Dione Esquivel ., P.A.-C.) Subjective Pt evaluation today including: conversation w/ patient, physical exam, chart review, lab review, review of studies, review of inpatient medication list Pain: 0/10 Patient seen and examined. Patient is pleasantly confused, unclear of situation (history of dementia). Denies any fever, chills, abdominal pain, discomfort around the incision site of left groin. No nausea, vomiting or dysuria. No bowel movement postoperatively. Advance to full liquid diet this morning by surgery; tolerating well. Constitutional: No fever, No chills, No weakness, No fatigue Eyes: No eye pain Respiratory: No wheezing, No shortness of breath Cardiovascular: No chest pain Abdomen: No pain, No nausea, No vomiting Neurologic: + problem reported (dementia (chronic) ) Skin: No new/changing skin lesions All Other Systems: Reviewed and Negative (Dione Esquivel, P.A.-C.) Medications Reported Home Medications Medications Dose Route/Sig Max Daily Dose Days Date Category Dose Instructions Astelin Nasal [place] (Azelastine Hcl) 200 Sprays/30 Ml [place] 1-2 Sprays NA BID 04/21/18 Reported Folvite (Folic Acid) 1 Mg Tab 2 Mg PO DAILY 04/21/18 Reported Vitamin D3 (Cholecalciferol) 2,000 Unit Cap 1 Cap PO DAILY 04/21/18 Reported [place]-3 (Fish Oil) 1 Ea Cap 1 Cap PO DAILY 04/21/18 Reported Ambien (Zolpidem Tartrate) 10 Mg Tab 5 Mg PO HS PRN 12/19/14 Reported Zocor (Simvastatin) 80 Mg Tab 40 Mg PO QPM 12/19/14 Reported 1/2 80MG TAB Ultram (Tramadol HCl) 50 Mg Tab 50 Mg PO Q6 PRN 12/19/14 Reported Claritin (Loratadine) 10 Mg Tab 10 Mg PO DAILY 12/19/14 Reported Tenormin (Atenolol) 50 Mg Tab 50 Mg PO DAILY 12/19/14 Reported (Dione Esquivel, P.A.-C.) Objective Vital Signs Date Time Temp Pulse Resp B/P (MAP) Pulse Ox O2 Delivery O2 Flow Rate FiO2 04/22/18 08:18 57 18 112/57 (75) 04/22/18 08:00 92 Nasal Cannula 8/13/18 03:42 36.8 56 19 112/57 (75) 92 Room Air 04/21/18 23:01 37.3 61 18 129/74 (92) 93 Room Air 04/21/18 20:00 Room Air 04/21/18 18:54 36.6 64 20 141/65 (90) 94 Room Air 04/21/18 14:59 36.9 54 21 120/63 (82) 97 Nasal Cannula 1.0 04/21/18 13:01 36.7 61 12 116/59 (78) 97 Nasal Cannula 2.0 04/21/18 12:31 36.7 62 12 123/64 (83) 95 Nasal Cannula 2.0 04/21/18 12:07 36.8 61 13 139/69 (92) 95 Nasal Cannula 2.0 04/21/18 11:40 36.8 60 16 119/69 97 Room Air 04/21/18 11:00 62 18 143/68 98 Nasal Cannula 2 04/21/18 10:45 36.5 69 23 127/65 98 Nasal Cannula 2 04/21/18 10:35 81 18 114/86 97 Nasal Cannula 2 04/21/18 10:25 79 18 164/90 93 Nasal Cannula 2 (Dione Esquivel ., P.A.-C.) Physical Exam General Appearance: WD/WN, no apparent distress, + pertinent finding (Sitting upright in bed, drinking tea) Eyes: normal inspection, PERRL, sclerae normal ENT: normal ENT inspection, hearing grossly normal, pharynx normal (Mucous membranes moist) Neck: supple, thyroid normal, trachea midline Respiratory/Chest: chest non-tender, lungs clear, normal breath sounds, no respiratory distress, no accessory muscle use Cardiovascular: regular rate, rhythm, no murmur Abdomen: normal bowel sounds, non tender, soft, no organomegaly, + pertinent finding (Left inguinal surgical dressing clean, dry, intact. Non-tender to palpation. No surrounding erythema. ) Extremities: normal range of motion, non-tender Neurologic/Psychiatric: ampoule filler and sealer II-XII nml as tested, no motor/sensory deficits, alert, normal mood/affect, + disoriented (History of dementia) Skin: normal color, warm/dry (Dione Esquivel, P.A.-C.) Laboratory Results Last 24 Hours Test 04/22/18 06:05 White Blood Count 8.89 K/uL Red Blood Count 3.91 M/uL Hemoglobin 12.5 g/dL Hematocrit 37.1 % Mean Corpuscular Volume 94.9 fL Mean Corpuscular Hemoglobin 32.0 pg Mean Corpuscular Hemoglobin Concent 33.7 g/dl Platelet Count 154 K/uL Mean Platelet Volume 10.5 fL Neutrophils (%) (Auto) 72.5 % Lymphocytes (%) (Auto) 15.9 % Monocytes (%) (Auto) 10.8 % Eosinophils (%) (Auto) 0.4 % Basophils (%) (Auto) 0.2 % Neutrophils # (Auto) 6.44 K/uL Lymphocytes # (Auto) 1.41 K/uL Monocytes # (Auto) 0.96 K/uL Eosinophils # (Auto) 0.04 K/uL Basophils # (Auto) 0.02 K/uL RDW Standard Deviation 45.2 fL RDW Coefficient of Variation 13.1 % Immature Granulocyte % (Auto) 0.2 % Immature Granulocyte # (Auto) 0.02 K/uL Sodium Level 139 mmol/L Potassium Level 3.6 mmol/L Chloride Level 104 mmol/L Carbon Dioxide Level 30 mmol/L Anion Gap 5.0 mmol/L Blood Urea Nitrogen 8 mg/dl Creatinine 0.87 mg/dl Est Creatinine Clear Calc Drug Dose 68.8 ml/min Estimated GFR () 93.8 Estimated GFR (Non- 80.9 BUN/Creatinine Ratio 9.4 Random Glucose 124 mg/dl Calcium Level 8.3 mg/dl Magnesium Level 2.0 mg/dl Total Bilirubin 1.0 mg/dl Aspartate Amino Transf (AST/SGOT) 13 U/L Alanine Aminotransferase (ALT/SGPT) 13 U/L Alkaline Phosphatase 58 U/L Total Protein 6.4 gm/dl Albumin 3.2 gm/dl Globulin 3.2 gm/dl Albumin/Globulin Ratio 1.0 (Dione Esquivel ., P.A.-C.) Diagnostic Results Repeat KUB (04/22/18): IMPRESSION: Interval removal of the nasogastric tube. Nonobstructive abdominal small bowel pattern. 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 Incarcerated left inguinal hernia with subsequent small bowel obstruction POD#1 s/p left inguinal hernia repair -Pt is doing well post-operatively after 04/21/[address] Noonan -Denies any nausea, vomiting, post-op incisional pain -Repeat KUB this morning shows interval removal of the nasogastric tube. Nonobstructive abdominal small bowel pattern. -Advanced to full liquid diet this morning. Tolerating well so far. -Per primary for pain control, wound care, IV fluids, anticoagulation and activities HTN -Lower end of normotensive at 112/57 -Hold Atenolol for now -Continue monitoring and resume if needed Sinus bradycardia -Unchanged since admission -HR stable in 50s-60s -Denies lightheadedness or near-syncope -EKG without changes -Atenolol held for now HLD -Resume simvastatin Insomnia -Resume Ambien HS PRN Chronic rhinitis -Resume loratadine, azelastine nasal spray Hx of Squamous cell ca of anus without recurrence -Diagnosed and treated 8 years prior -Follows general surgery in [place] Dementia -Monitor, may be exacerbated by post op delirium -Prn lorazepam ordered DVT Ppx: SQ lovenox, per surgery Code status: FULL Patient seen in collaboration with Dr. Hanson. Please see addendum. Thank you for this consultation. We will follow the patient with you during their hospital stay. You [facility] via pager @ [phone]. (Dione Esquivel ., P.A.-C.) Pt was seen and examined. Agreed with Dione CHAUDHRY assessment and plan. Lying in bed with no distress, confused. S/P day 1 for left inguinal hernia repair performed by Dr. Noonan. KUB done this morning showed nonobstructive abdominal small bowel pattern. Tolerated clear liquid diet. Continue monitor closely. MD Margie (Nakul Hanson M.D.)
[2018-04-22] MEDS ORDERED: ZOLPIDEM TARTRATE 5 MG TAB PO PRN (10:45)
[2018-04-22] MEDS: LORAZEPAM 2 MG/ML 1 ML VIAL IV PRN (11:26)
--- NOTE | 2018-04-22 11:55 | Surgery Progress Note ---
Surgery Progress Note Date of Service Apr 22, 2018. Subjective Post OP Day: 1 (s/p incarcerated left inguinal hernia repair with mesh) patient pleasantly confused (history of dementia) Denies abdominal pain, nausea, vomiting, chest pain or shortness of breath No bowel movement since surgery Tolerating full liquids Objective Vital Signs: Date Time Temp Pulse Resp B/P (MAP) Pulse Ox O2 Delivery O2 Flow Rate FiO2 04/22/18 08:18 57 18 112/57 (75) 04/22/18 08:00 92 Nasal Cannula 04/22/18 03:42 36.8 56 19 112/57 (75) 92 Room Air 04/21/18 23:01 37.3 61 18 129/74 (92) 93 Room Air 04/21/18 20:00 Room Air 04/21/18 18:54 36.6 64 20 141/65 (90) 94 Room Air 04/21/18 14:59 36.9 54 21 120/63 (82) 97 Nasal Cannula 1.0 04/21/18 13:01 36.7 61 12 116/59 (78) 97 Nasal Cannula 2.0 04/21/18 12:31 36.7 62 12 123/64 (83) 95 Nasal Cannula 2.0 04/21/18 12:07 36.8 61 13 139/69 (92) 95 Nasal Cannula 2.0 General Appearance: WD/WN, no apparent distress Head: normocephalic, atraumatic Neck: trachea midline Respiratory/Chest: no respiratory distress, no accessory muscle use Abdomen: non tender, non distended, soft, no organomegaly, no pulsatile mass Incision(s): clean, dry (dressing clean and dry, incision not inspected POD # 1 ), intact Laboratory Results: Results Past 24 Hours Test 04/22/18 06:05 Range/Units White Blood Count 8.89 4.8-10.8 K/uL Red Blood Count 3.91 4.7-6.1 M/uL Hemoglobin 12.5 14.0-18.0 g/dL Hematocrit 37.1 42-52 % Mean Corpuscular Volume 94.9 80-100 fL Mean Corpuscular Hemoglobin 32.0 25-34 pg Mean Corpuscular Hemoglobin Concent 33.7 32-36 g/dl Platelet Count 154 130-400 K/uL Mean Platelet Volume 10.5 7.4-10.4 fL Neutrophils (%) (Auto) 72.5 % Lymphocytes (%) (Auto) 15.9 % Monocytes (%) (Auto) 10.8 % Eosinophils (%) (Auto) 0.4 % Basophils (%) (Auto) 0.2 % Neutrophils # (Auto) 6.44 1.4-6.5 K/uL Lymphocytes # (Auto) 1.41 1.2-3.4 K/uL Monocytes # (Auto) 0.96 0.11-0.59 K/uL Eosinophils # (Auto) 0.04 0-0.5 K/uL Basophils # (Auto) 0.02 0-0.2 K/uL RDW Standard Deviation 45.2 36.4-46.3 fL RDW Coefficient of Variation 13.1 11.5-14.5 % Immature Granulocyte % (Auto) 0.2 % Immature Granulocyte # (Auto) 0.02 0.00-0.02 K/uL Sodium Level 139 136-145 mmol/L Potassium Level 3.6 3.5-5.1 mmol/L Chloride Level 104 98-107 mmol/L Carbon Dioxide Level 30 21-32 mmol/L Anion Gap 5.0 3-11 mmol/L Blood Urea Nitrogen 8 7-18 mg/dl Creatinine 0.87 0.60-1.40 mg/dl Est Creatinine Clear Calc Drug Dose 68.8 ml/min Estimated GFR () 93.8 Estimated GFR (Non- 80.9 BUN/Creatinine Ratio 9.4 10-20 Random Glucose 124 70-99 mg/dl Calcium Level 8.3 8.5-10.1 mg/dl Magnesium Level 2.0 1.8-2.4 mg/dl Total Bilirubin 1.0 0.2-1 mg/dl Aspartate Amino Transf (AST/SGOT) 13 15-37 U/L Alanine Aminotransferase (ALT/SGPT) 13 12-78 U/L Alkaline Phosphatase 58 45-117 U/L Total Protein 6.4 6.4-8.2 gm/dl Albumin 3.2 3.4-5.0 gm/dl Globulin 3.2 2.5-4.0 gm/dl Albumin/Globulin Ratio 1.0 0.9-2 Assessment & Plan POD # 1 s/p open left inguinal herniorrhaphy with mesh- Incarcerated left inguinal hernia - Vitals stable, afebrile post op - no leukocytosis - KUB showing nonobstructive bowel gas pattern - tolerating full liquids Plan: Continue current pain management as needed for pain, limit IV narcotics , po as needed Decrease IV fluids to 75 mls/hr encourage OOB to chair and ambulation with assistance Continue full liquids, advance as tolerated Resume home medications, hold Atenolol for now as per hospitalist recs Possible discharge this evening/tomorrow morning Dr. Noonan has seen patient agrees with above.
[2018-04-22] MEDS ORDERED: HALOPERIDOL LACTATE 5 MG/ML 1 ML VIAL ONE (13:58)
[2018-04-22] MEDS ORDERED: HALOPERIDOL LACTATE 5 MG/ML 1 ML VIAL IM PRN (14:00)
[2018-04-22] MEDS: ACETAMINOPHEN 325 MG TAB PO PRN (20:11)
[2018-04-22] MEDS: SIMVASTATIN 40 MG TAB PO SCH (20:11)
[2018-04-23 04:30] VITALS: BP 128/63; PULSE 59; TEMP 37.4; O2SAT 96
[2018-04-23] MEDS: D5W AND 1/2NSS + 20MEQ KCL 1,000 ML IV SCH ×4 (06:08→19:26)
[2018-04-23 08:01] VITALS: BP 134/66; PULSE 58; TEMP 37.1; O2SAT 94
[2018-04-23] MEDS: ENOXAPARIN 40 MG/0.4 ML SYR SQ SCH (08:32)
[2018-04-23] MEDS: LORATADINE 10 MG TAB PO SCH (08:32)
--- NOTE | 2018-04-23 09:50 | Surgery Progress Note ---
Surgery Progress Note Date of Service Apr 23, 2018. Subjective Post OP Day: 2 less confused this morning, more alert no abdominal pain no nausea or vomiting not eating much, no real appetite no bowel movement or flatus per patient Objective Vital Signs: Date Time Temp Pulse Resp B/P (MAP) Pulse Ox O2 Delivery O2 Flow Rate FiO2 04/23/18 08:01 37.1 58 18 134/66 (88) 94 Room Air 04/23/18 08:00 Room Air 04/23/18 04:30 37.4 59 18 128/63 (84) 96 Room Air 04/22/18 22:50 36.4 52 18 120/52 (74) 95 Room Air 04/22/18 20:11 Room Air 04/22/18 18:54 37.6 66 21 139/66 (90) 94 Room Air 04/22/18 15:20 36.6 68 18 133/63 (86) 91 Room Air 04/22/18 12:00 37.2 65 18 124/67 (86) 94 Room Air General Appearance: WD/WN, no apparent distress Head: normocephalic, atraumatic Neck: trachea midline Respiratory/Chest: no respiratory distress, no accessory muscle use Abdomen: non tender, non distended, soft, no organomegaly, no pulsatile mass Incision(s): clean, dry, intact, no erythema, no drainage, findings (steri strips present and intact) Laboratory Results: Results Past 24 Hours Test 04/22/18 20:45 Range/Units Urine Color YELLOW Urine Appearance CLEAR CLEAR Urine pH 7.0 4.5-7.5 Urine Specific [place] 1.006 1.000-1.030 Urine Protein NEG NEG Urine Glucose (UA) NEG NEG Urine Ketones NEG NEG Urine Occult Blood NEG NEG Urine Nitrite NEG NEG Urine Bilirubin NEG NEG Urine Urobilinogen NEG NEG Urine Leukocyte Esterase NEG NEG Urine WBC (Auto) 1-5 0-5 /hpf Urine RBC (Auto) 0-4 0-4 /hpf Urine Hyaline Casts (Auto) 0 0-5 /lpf Urine Epithelial Cells (Auto) 0-5 0-5 /lpf Urine Bacteria (Auto) NEG NEG Assessment & Plan POD # 2 s/p open left inguinal herniorrhaphy with mesh- Incarcerated left inguinal hernia - Vitals stable, Mild fever last evening Tmax 37.6 - KUB yesterday showing nonobstructive bowel gas pattern - tolerating full liquids but not eating much - no return of bowel function yet Plan: Continue current pain management as needed for pain, limit IV narcotics , po as needed IV fluids at 75 mls/hr encourage OOB to chair and ambulation with assistance Continue full liquids, advance as tolerated Miralax one dose today Resume home medications, hold Atenolol for now as per hospitalist recs await medicine eval today will re-evaluate later today Dr. Emanuel has seen and examined patient, agrees with above
[2018-04-23] MEDS ORDERED: POLYETHYLENE (MIRALAX) 17 GM PACK PO SCH (10:00)
[2018-04-23] MEDS ORDERED: POLYETHYLENE (MIRALAX) 17 GM PACK PO ONE (10:00)
[2018-04-23 10:45] VITALS: BP 134/66; PULSE 58; TEMP 37.1; O2SAT 94
[2018-04-23 11:18] VITALS: BP 148/81; PULSE 56; TEMP 36.6; O2SAT 93
--- NOTE | 2018-04-23 11:36 | Hospitalist Progress Note ---
Hospitalist Progress Note Date of Service Apr 23, 2018. (Opal Walters CRNP) Subjective Patient seen and examined. Mental status much improved today, agitation resolved. Patient reports a poor appetite however denies nausea, vomiting, or abdominal pain. No BM or flatus. No chest pain or shortness of breath. (Opal Walters CRNP) Objective Vital Signs Date Time Temp Pulse Resp B/P (MAP) Pulse Ox O2 Delivery O2 Flow Rate FiO2 04/23/18 10:45 37.1 58 18 94 04/23/18 08:01 37.1 58 18 134/66 (88) 94 Room Air 04/23/18 08:00 Room Air 04/23/18 04:30 37.4 59 18 128/63 (84) 96 Room Air 04/22/18 22:50 36.4 52 18 120/52 (74) 95 Room Air 04/22/18 20:11 Room Air 04/22/18 18:54 37.6 66 21 139/66 (90) 94 Room Air 04/22/18 15:20 36.6 68 18 133/63 (86) 91 Room Air 04/22/18 12:00 37.2 65 18 124/67 (86) 94 Room Air (Opal Walters CRNP) Physical Exam General Appearance: WD/WN, no apparent distress Respiratory/Chest: no respiratory distress, + decreased breath sounds Cardiovascular: regular rate, rhythm, no edema Abdomen: normal bowel sounds, non tender, soft Neurologic/Psychiatric: no motor/sensory deficits, alert, + disoriented (to year, aware of month; poor insight ) Skin: + pertinent finding (left inguinal surgical incision with steri strips dry and intact - no drainage or surrounding erythema) (Opal Walters CRNP) Laboratory Results Last 24 Hours Test 04/22/18 20:45 Urine Color YELLOW Urine Appearance CLEAR Urine pH 7.0 Urine Specific [place] 1.006 Urine Protein NEG Urine Glucose (UA) NEG Urine Ketones NEG Urine Occult Blood NEG Urine Nitrite NEG Urine Bilirubin NEG Urine Urobilinogen NEG Urine Leukocyte Esterase NEG Urine WBC (Auto) 1-5 /hpf Urine RBC (Auto) 0-4 /hpf Urine Hyaline Casts (Auto) 0 /lpf Urine Epithelial Cells (Auto) 0-5 /lpf Urine Bacteria (Auto) NEG (Opal Walters CRNP) Assessment and Plan INCARCERATED LEFT INGUINAL HERNIA W/ SBO S/P LEFT INGUINAL HERNIA REPAIR -POD#2 -overall doing well - pain is controlled; has a poor appetite but denies nausea and vomiting -remains on full liquids as per surgery -IVF - D5/0.45NSS w/ 20meq K+ @ 75mls/hr HTN -atenolol on hold -BPs improving; likely can resume atenolol tomorrow SINUS RANDI -HR in the 60s -stable, asymptomatic -atenolol on hold HLD -continue statin INSOMNIA -PRN Ambien DEMENTIA -likely experienced post op delirium, improved DVT PROPHYLAXIS -SQ Lovenox (Opal Walters ., KASSIDY) Pt was seen and examined. Agreed with Opal YI assessment and plan. Lying in bed with no distress. Received haldol yesterday due to agitation. Has been calm today. S/P day 2 for left inguinal hernia repair performed by Dr. Noonan. KUB done yesterday showed nonobstructive abdominal small bowel pattern. Diet advanced to full liquid and tolerated. Will transfer out of telemetry. Continue monitor. MD Margie (Nakul Hanson M.D.)
[2018-04-23] MEDS ORDERED: NURSING VERBAL MED ORDER ONE (13:00)
[2018-04-23 15:13] VITALS: BP 167/77; PULSE 56; TEMP 36.5; O2SAT 96
[2018-04-23] MEDS ORDERED: HALOPERIDOL LACTATE 5 MG/ML 1 ML VIAL IM PRN (21:15)
[2018-04-23] MEDS ORDERED: HALOPERIDOL 1 MG TAB PO PRN (21:15)
[2018-04-23] MEDS: SIMVASTATIN 40 MG TAB PO SCH (22:28)
[2018-04-23 22:56] VITALS: BP 146/75; PULSE 69; TEMP 36.9; O2SAT 93
[2018-04-24] MEDS: ACETAMINOPHEN 325 MG TAB PO PRN (00:38)
[2018-04-24] MEDS ORDERED: HALOPERIDOL LACTATE 5 MG/ML 1 ML VIAL IM ONE (02:07)
[2018-04-24 06:29] LABS: HEMATOCRIT 38.5 % (42-52); HEMOGLOBIN 13.4 g/dL (14.0-18.0); MEAN CELL VOLUME 93.4 fL (80-100); MEAN CORPUSCULAR HEMOGLOBIN 32.5 pg (25-34); MEAN CORPUSCULAR HGB CONC 34.8 g/dl (32-36); MEAN PLATELET VOLUME 11.3 fL (7.4-10.4); PLATELET COUNT 169 K/uL (130-400); RED CELL DISTRIBUTION WIDTH CV 12.7 % (11.5-14.5); RED CELL DISTRIBUTION WIDTH SD 42.7 fL (36.4-46.3); WHITE BLOOD COUNT 8.22 K/uL (4.8-10.8)
[2018-04-24 06:55] LABS: CREATININE 0.79 mg/dl (0.60-1.40); POTASSIUM 3.7 mmol/L (3.5-5.1)
[2018-04-24 08:16] VITALS: BP 109/66; PULSE 84; TEMP 36.4; O2SAT 97
[2018-04-24] MEDS: LORATADINE 10 MG TAB PO SCH (08:25)
[2018-04-24] MEDS: ENOXAPARIN 40 MG/0.4 ML SYR SQ SCH ×2 (08:26→08:30)
[2018-04-24] MEDS ORDERED: BISACODYL 10 MG SUPP PR STA (09:03)
--- NOTE | 2018-04-24 09:56 | Surgery Progress Note ---
Surgery Progress Note Date of Service Apr 24, 2018. Subjective Post OP Day: 3 (s/p left inguinal herniorrhaphy with mesh) patient still confused "I had bad day yesterday, had abdominal pain and they cut me open but I can't see it" unsure if he has had any flatus or bowel movement, when asked "I will ask my " Denies of any chest pain, shortness of breath, abdominal pain, nausea, vomiting. Tolerated full liquids for breakfast Per social psychologist notes , states he has mild forgetfulness at baseline but not confusion. He takes care of at home and is active with 1 [address]. Objective Vital Signs: Date Time Temp Pulse Resp B/P (MAP) Pulse Ox O2 Delivery O2 Flow Rate FiO2 04/24/18 08:37 Room Air 04/24/18 08:16 36.4 84 16 109/66 (80) 97 Room Air 04/23/18 23:45 Room Air 04/23/18 22:56 36.9 69 16 146/75 (98) 93 Room Air 04/23/18 16:15 Room Air 04/23/18 15:13 36.5 56 18 167/77 (107) 96 Room Air 04/23/18 11:45 Room Air 04/23/18 11:18 36.6 56 15 148/81 (103) 93 Room Air 04/23/18 10:45 37.1 58 18 94 General Appearance: WD/WN, no apparent distress Head: normocephalic, atraumatic Neck: trachea midline Respiratory/Chest: no respiratory distress, no accessory muscle use Abdomen: non tender, non distended, soft, no organomegaly, no pulsatile mass Incision(s): clean, dry, intact, no erythema, no drainage, ecchymosis Laboratory Results: Results Past 24 Hours Test 04/24/18 06:11 Range/Units White Blood Count 8.22 4.8-10.8 K/uL Red Blood Count 4.12 4.7-6.1 M/uL Hemoglobin 13.4 14.0-18.0 g/dL Hematocrit 38.5 42-52 % Mean Corpuscular Volume 93.4 80-100 fL Mean Corpuscular Hemoglobin 32.5 25-34 pg Mean Corpuscular Hemoglobin Concent 34.8 32-36 g/dl RDW Standard Deviation 42.7 36.4-46.3 fL RDW Coefficient of Variation 12.7 11.5-14.5 % Platelet Count 169 130-400 K/uL Mean Platelet Volume 11.3 7.4-10.4 fL Sodium Level 138 136-145 mmol/L Potassium Level 3.7 3.5-5.1 mmol/L Chloride Level 105 98-107 mmol/L Carbon Dioxide Level 27 21-32 mmol/L Anion Gap 6.0 3-11 mmol/L Blood Urea Nitrogen 6 7-18 mg/dl Creatinine 0.79 0.60-1.40 mg/dl Est Creatinine Clear Calc Drug Dose 75.7 ml/min Estimated GFR () 97.6 Estimated GFR (Non- 84.2 BUN/Creatinine Ratio 8.1 10-20 Random Glucose 92 70-99 mg/dl Calcium Level 9.0 8.5-10.1 mg/dl Assessment & Plan POD # 3 s/p left inguinal herniorrhaphy with mesh, incarcerated small bowel -vitals stable, afebrile, no leukocytosis - no abdominal or incisional pain - no return of bowel function, unsure if passing flatus Mild Dementia - Confusion, change in mental status - Head CT negative Plan: Continue current pain management with PO Percocet and Tylenol as needed May advance diet to regular heart healthy diet for lunch Continue home medications Dulcolax suppository now OOB to chair and ambulation Continue SCDs and SQ Lovenox Discussed pt with social psychologist, will order PT/OT for further evaluation given confusion and change in mental status. May need displacement to [facility]. director of outpatient services to talk to today when she arrives to find out patient's true baseline mental status. PT/OT consultation Dr. Emanuel has seen and examined patient, agrees with above.
[2018-04-24 11:06] VITALS: BP 123/75; PULSE 72
--- NOTE | 2018-04-24 13:50 | Hospitalist Progress Note ---
Hospitalist Progress Note Date of Service Apr 24, 2018. (Opal Walters CRNP) Subjective Patient seen and examined. Sitting up in the chair at the bedside. Had increased agitation again last night, required Haldol. Spoke to - reports he usually has some mild confusion in the morning that requires her to re-orient him. He remains very active taking care of their home and yard. Received suppository and had a BM. Reports pain is well controlled. Tolerating diet. No chest pain or shortness of breath. Denies nausea and abdominal pain. (Opal Walters CRNP) Objective Vital Signs Date Time Temp Pulse Resp B/P (MAP) Pulse Ox O2 Delivery O2 Flow Rate FiO2 04/24/18 11:06 72 123/75 (91) 04/24/18 08:37 Room Air 04/24/18 08:16 36.4 84 16 109/66 (80) 97 Room Air 04/23/18 23:45 Room Air 04/23/18 22:56 36.9 69 16 146/75 (98) 93 Room Air 04/23/18 16:15 Room Air 04/23/18 15:13 36.5 56 18 167/77 (107) 96 Room Air (Opal Walters CRNP) Physical Exam General Appearance: no apparent distress Respiratory/Chest: lungs clear, normal breath sounds, no respiratory distress Cardiovascular: regular rate, rhythm, no edema, no murmur Abdomen: normal bowel sounds, non tender, soft, no organomegaly Neurologic/Psychiatric: alert, + disoriented (to time and situation) (Opal Walters CRNP) Laboratory Results Item Value Date Time White Blood Count 8.22 K/uL 04/24/18 0611 Hemoglobin 13.4 g/dL L 04/24/18 0611 Hematocrit 38.5 % L 04/24/18 0611 Platelet Count 169 K/uL 04/24/18 0611 Sodium Level 138 mmol/L 04/24/18 0611 Potassium Level 3.7 mmol/L 04/24/18 0611 Blood Urea Nitrogen 6 mg/dl L 04/24/18 0611 Creatinine 0.79 mg/dl 04/24/18 0611 (Opal Walters CRNP) Assessment and Plan INCARCERATED LEFT INGUINAL HERNIA W/ SBO S/P LEFT INGUINAL HERNIA REPAIR -POD#3 -overall doing well - pain is controlled, improved appetite today -diet advanced to AHA per surgery -IVF d/c'd by surgery HTN -atenolol was on hold due to borderline BPs -BP is improved today, will resume atenolol SINUS RANDI -Resolved, remained asymptomatic -Atenolol was held -Resume atenolol today HLD -continue statin INSOMNIA -PRN Ambien DEMENTIA -Patient experiencing some increased confusion and night -likely hospital/ postoperative delirium -Discussed with patient's , she feels as though the patient is doing much better today. She reports that he is typically confused in the morning and requires her to reorient him. He is also very active taking care of their home and yard. -Hospital/postoperative delirium likely multifactorial secondary to surgery, anesthesia, pain medications, new environment -PT/OT evaluations -Recommend home health at discharge DVT PROPHYLAXIS -SQ Lovenox (Opal Walters ., KASSIDY) Pt was seen and examined. Agreed with Opal YI assessment and plan. Lying in bed with no distress. S/P day 3 for left inguinal hernia repair performed by . Tolerated diet. Discharge once stable by surgery team. MD Margie (Nakul Hanson M.D.)
[2018-04-24 15:15] VITALS: BP 126/86; PULSE 65; TEMP 36.6; O2SAT 98
[2018-04-24 15:50] VITALS: O2SAT 98
[2018-04-24] MEDS: SIMVASTATIN 40 MG TAB PO SCH (20:41)
[2018-04-24 22:45] VITALS: BP 147/76; PULSE 59; TEMP 36.9; O2SAT 95
[2018-04-25 07:13] LABS: HEMATOCRIT 40.5 % (42-52); HEMOGLOBIN 14.2 g/dL (14.0-18.0); MEAN CELL VOLUME 94.2 fL (80-100); MEAN CORPUSCULAR HGB CONC 35.1 g/dl (32-36); MEAN PLATELET VOLUME 11.4 fL (7.4-10.4); PLATELET COUNT 202 K/uL (130-400); RED CELL DISTRIBUTION WIDTH SD 44.7 fL (36.4-46.3); WHITE BLOOD COUNT 9.42 K/uL (4.8-10.8)
[2018-04-25 07:19] VITALS: BP 99/57; PULSE 70; TEMP 36.8; O2SAT 97
[2018-04-25 07:50] LABS: CALCIUM 9.2 mg/dl (8.5-10.1); CREATININE 0.84 mg/dl (0.60-1.40); POTASSIUM 4.1 mmol/L (3.5-5.1)
[2018-04-25 08:20] VITALS: BP 120/72; PULSE 71
[2018-04-25] MEDS: LORATADINE 10 MG TAB PO SCH (08:24)
[2018-04-25] MEDS: ENOXAPARIN 40 MG/0.4 ML SYR SQ SCH (08:25)
[2018-04-25] MEDS ORDERED: OXYC-57 PO (09:54)
--- NOTE | 2018-04-25 09:59 | Discharge Instructions ---
Discharge Instructions Date of Service Apr 25, 2018. Admission Reason for Admission: Incarecerated-Left Inguinal Hernia Discharge Discharge Diagnosis / Problem: same Discharge Goals Goal(s): Decrease discomfort, Improve function Activity Recommendations Activity Limitations: per Instructions/Follow-up section No heavy lifting over 10 pounds for 6 weeks No strenuous activity until cleared by surgeon No submerging incisions underwater for 2 weeks (no bathing, swimming, or hot tubs) No driving for 2 weeks, while taking narcotic pain medication, or until you are pain free . Instructions / Follow-Up Instructions / Follow-Up You may shower, gently clean incision with soap and water. Leave steri strips on incision for 1 week and then remove. They may fall off on their own that is okay. Walking and light activity is encouraged to prevent blood clots from forming You may take your home prescription of Tramadol as needed for moderate to severe pain. Take only as needed and as directed. This medication may cause Constipation. To combat constipation: -Drink plenty of water daily, avoid foods that constipate, daily walking, and may take OTC stool softener such as Colace daily or twice a day while taking narcotic pain medication -If above measures do not work, you may take Miralax or Milk of Magnesia You may take extra strength Tylenol or Ibuprofen as needed for mild pain. Follow-up in surgical office in 1-2 weeks, please call office at [phone] to make an appointment. Current Hospital Diet Patient's current hospital diet: AHA Diet (Heart Healthy) Discharge Diet Recommended Diet: Regular Diet Procedures Procedures Performed: Left Incarcerated Inguina Hernia Repair with mesh Pending Studies Studies pending at discharge: no Medical Emergencies . Who to Call and When: Medical Emergencies: If at any time you feel your situation is an emergency, please call 911 immediately. . Non-Emergent Contact Non-Emergency issues call your: Primary Care Provider, Surgeon Call Non-Emergent contact if: you have a fever, temperature is above 101, your pain is not controlled, your pain is worsening, your pain is unusual for you, wound has increased drainage, wound has increased redness, wound has increased pain . "Provider Documentation" section prepared by Alyssa Smith. . [place] Drug Monitoring Program Search Results: patient reviewed within database, no issues identified
--- NOTE | 2018-04-25 10:09 | Surgery Progress Note ---
Surgery Progress Note Date of Service Apr 25, 2018. Subjective Post OP Day: 4 + bowel movement, + flatus, + diet (tolerated regular diet), No nausea, No vomiting Much less confused this AM Objective Vital Signs: Date Time Temp Pulse Resp B/P (MAP) Pulse Ox O2 Delivery O2 Flow Rate FiO2 04/25/18 08:20 71 120/72 (88) 04/25/18 07:19 36.8 70 18 99/57 (71) 97 Room Air 04/24/18 23:35 Room Air 04/24/18 22:45 36.9 59 16 147/76 (99) 95 Room Air 04/24/18 15:50 98 Room Air 04/24/18 15:15 36.6 65 18 126/86 (99) 98 Room Air 04/24/18 11:06 72 123/75 (91) Abdomen: non tender, non distended, soft Incision(s): clean, dry, intact, no erythema, no drainage Laboratory Results: Results Past 24 Hours Test 04/25/18 06:44 Range/Units White Blood Count 9.42 4.8-10.8 K/uL Red Blood Count 4.30 4.7-6.1 M/uL Hemoglobin 14.2 14.0-18.0 g/dL Hematocrit 40.5 42-52 % Mean Corpuscular Volume 94.2 80-100 fL Mean Corpuscular Hemoglobin 33.0 25-34 pg Mean Corpuscular Hemoglobin Concent 35.1 32-36 g/dl RDW Standard Deviation 44.7 36.4-46.3 fL RDW Coefficient of Variation 13.0 11.5-14.5 % Platelet Count 202 130-400 K/uL Mean Platelet Volume 11.4 7.4-10.4 fL Sodium Level 137 136-145 mmol/L Potassium Level 4.1 3.5-5.1 mmol/L Chloride Level 103 98-107 mmol/L Carbon Dioxide Level 29 21-32 mmol/L Anion Gap 5.0 3-11 mmol/L Blood Urea Nitrogen 14 7-18 mg/dl Creatinine 0.84 0.60-1.40 mg/dl Est Creatinine Clear Calc Drug Dose 71.2 ml/min Estimated GFR () 95.2 Estimated GFR (Non- 82.1 BUN/Creatinine Ratio 16.2 10-20 Random Glucose 89 70-99 mg/dl Calcium Level 9.2 8.5-10.1 mg/dl Assessment & Plan S/P repair of incarcerated left inguinal hernia Mentation has improved Appreciated IM input and help. Can D/C to home Plan is to have Home Health visits Activity levels discussed with him Can follow up Dr. Noonan in two weeks
--- NOTE | 2018-04-25 10:28 | Hospitalist Progress Note ---
Hospitalist Progress Note Date of Service Apr 25, 2018. (Opal Walters CRNP) Subjective Patient seen and examined. Sitting up in the chair at the bedside. Much less confused this morning. Reports pain is well controlled. No nausea or abdominal pain. Denies chest pain shortness of breath. (Opal Walters CRNP) Objective Vital Signs Date Time Temp Pulse Resp B/P (MAP) Pulse Ox O2 Delivery O2 Flow Rate FiO2 04/25/18 08:20 71 120/72 (88) 04/25/18 07:19 36.8 70 18 99/57 (71) 97 Room Air 04/24/18 23:35 Room Air 04/24/18 22:45 36.9 59 16 147/76 (99) 95 Room Air 04/24/18 15:50 98 Room Air 04/24/18 15:15 36.6 65 18 126/86 (99) 98 Room Air 04/24/18 11:06 72 123/75 (91) (Opal Walters CRNP) Physical Exam General Appearance: no apparent distress Respiratory/Chest: lungs clear, normal breath sounds, no respiratory distress Cardiovascular: regular rate, rhythm, no edema, no murmur Abdomen: normal bowel sounds, non tender, soft Neurologic/Psychiatric: alert, + disoriented (To time, poor insight to situation) (Opal Walters CRNP) Laboratory Results Item Value Date Time White Blood Count 9.42 K/uL 04/25/18 0644 Hemoglobin 14.2 g/dL 04/25/18 0644 Hematocrit 40.5 % L 04/25/18 06 RDW Coefficient of Variation 13.0 % 04/25/18 06 Sodium Level 137 mmol/L 04/25/18 0644 Potassium Level 4.1 mmol/L 04/25/18 0644 Blood Urea Nitrogen 14 mg/dl # 04/25/18 0644 Creatinine 0.84 mg/dl 04/25/18 06 (Opal Walters CRNP) Assessment and Plan INCARCERATED LEFT INGUINAL HERNIA W/ SBO S/P LEFT INGUINAL HERNIA REPAIR -POD#4 -Pain control, tolerating diet, moving bowels -Okay to DC home today with home health from medicine standpoint -Follow-up with general surgery as an outpatient HTN -atenolol was on hold due to borderline BPs -BP improved, atenolol was resumed SINUS RANDI -Resolved, remained asymptomatic -Atenolol was held -Now back on atenolol, heart rate stable HLD -continue statin INSOMNIA -PRN Ambien DEMENTIA -Patient experiencing some increased confusion and night -likely hospital/ postoperative delirium -Discussed with patient's , she feels as though the patient is doing much better today. She reports that he is typically confused in the morning and requires her to reorient him. He is also very active taking care of their home and yard. -Hospital/postoperative delirium likely multifactorial secondary to surgery, anesthesia, pain medications, new environment -PT/OT evaluations -Recommend home health at discharge -Mentation much improved today DVT PROPHYLAXIS -SQ Lovenox (Opal Walters ., KASSIDY) Pt was seen and examined. Agreed with Opal YI assessment and plan. S/P day 4 for left inguinal hernia repair performed by Lying in bed with no distress. Already got dress for discharge today. He said that he feels fine. Tolerated diet. Will discharge home today with home health services. Follow up with surgeon Dr. Noonan in 2 weeks. Advised pt to call his PCP at the [facility] for a follow up appointment within 1 week. MD Margie (Nakul Hanson M.D.)
[2018-04-25 12:21] VITALS: BP 120/72; PULSE 71; TEMP 36.8; O2SAT 97
--- NOTE | 2018-04-29 12:10 | Discharge Summary ---
Discharge Summary Dates Admission Date / Time: Apr 21, 2018 at 09:28 Discharge Date: Apr 25, 2018 Dispostion / Condition Discharge Disposition: Home Condition at Discharge: Good Principal Diagnosis (1) Incarcerated inguinal hernia Problem List (1) HTN (hypertension) (2) HLD (hyperlipidemia) (3) Squamous cell cancer, anus (4) Insomnia (5) Senile dementia (6) Chronic rhinitis Consultations / Procedures Consultations: Medicine PT/OT Lacquerer Procedures: Open left inguinal hernia repair with mesh Vaccinations: None Pending Studies / Follow-Up None Medication Reconciliation Continued Medications: Atenolol (Tenormin) 50 Mg Tab 50 MG PO DAILY, TAB Azelastine Hcl (Astelin Nasal [place]) 200 Sprays/30 Ml [place] 1-2 SPRAYS NA BID, BTL Cholecalciferol (Vitamin D3) 2,000 Unit Cap 1 CAP PO DAILY, CAP 3 Refills Fish Oil (Lindstrom-3) 1 Ea Cap 1 CAP PO DAILY, CAP Folic Acid (Folvite) 1 Mg Tab 2 MG PO DAILY, TAB Loratadine (Claritin) 10 Mg Tab 10 MG PO DAILY, TAB Simvastatin (Zocor) 80 Mg Tab 40 MG PO QPM, TAB 1/2 80MG TAB Tramadol (Ultram) 50 Mg Tab 50 MG PO Q6 PRN for Pain Zolpidem Tartrate (Ambien) 10 Mg Tab 5 MG PO HS PRN for Sleep Admission HPI Per the Admitting provider: pt is a 82 year old male who presents to ER with one week history lower abdominal pain, pt started with nausea and vomiting last 12 hours, pt's is at bed side, pt has mild dementia history, last BM yesterday, and also pt had diarrhea 3 days ago. pt denies fever, no chest pain, pt had dx anal cancer with radiation and chemo treatment 8 years ago. pt denies any bloody stool, Hospital Course (1) Incarcerated inguinal hernia Patient was taken to operating room for open left inguinal hernia repair with mesh and possible bowel resection by Dr. Noonan on 04/21/18. Patient was found to have small bowel incarcerated in the left inguinal hernia however did not require bowel resection. Patient tolerated procedure well and was transferred to recovery room and then to Telemetry floor for post operative care. He was started on IV fluids, PO Percocet with breakthrough Dilaudid as needed for pain , IV Zofran as needed for nausea, IV Ativan as needed for anxiety/agitation, OOB as tolerated, SCDs and Lovenox for DVT prophylaxis, Full liquid diet in am of POD # 1, Gonzalez catheter to gravity. Patient has baseline dementia however is very active at home and takes care of . Patient evaluated on POD # 1 in Telemetry, patient's vitals stable, afebrile, tolerating full liquids, KUB showing nonobstructive bowel gas pattern, and minimal post operative pain. However, patient confused (pleasantly on my examination) and agitated later in the day in which he required some IV Haldol. Patient had a one on one ordered as he was pulling at his IVs. Diet was advanced as tolerated. Atenolol held as patient's BP stable. POD # 2 patient had low appetite but tolerating full liquids. Less confused but still confused more so than baseline. No bowel movement since surgery. Miralax one time dose ordered. Diet again advanced as tolerated. He required another dose of Haldol in the evening on POD # 2. Most likely Delirium given hospitalization, new environment, anesthesia effects. Head CT scan was negative in the emergency department for any acute process. POD # 3 patient still confused but pleasant. Unsure if he had any return of bowel function. Again tolerating full liquids. Advised nursing staff to advance diet to regular heart healthy diet. Dulcolax suppository given. Discussed patient with web content & social media manager who was to discuss patient's baseline mentation with once she arrived to hospital and recommended PT/OT. Medicine was on consultation during patient's hospital stay and believes his confusion was due to Delirium, post anesthesia, and hospitalization with new environment. He was evaluated later in the day on POD # 3 and was doing well, walked hallway with PT, had a bowel movement after suppository and tolerated AHA regular diet. POD # 4 patient's mentation was vastly improved, very pleasant, held a conversation without being confused. He was discharged home on POD # 4 in stable condition with home health services. Discharge Instructions As given to patient Copies To Primary Care Provider: Jean Pierre Pryor M.D..
== END 2018-04-25 13:08 | disposition home health service (06) | DRG 352 ==
LOC: C.EDB 02:56 → C.2E 09:28 → ENRESERV 10:26 → C.MSN 04-23 11:40
PROVIDERS: ADMIT Surgery; ATTEND Surgery
PROC: 0YQ60ZZ Repair Left Inguinal Region, Open Approach (ICD-10-PCS; principal; 2018-04-21 08:00)
PROC: 0YU60JZ Supplement Left Inguinal Region with Synthetic Substitute, Open Approach (ICD-10-PCS; principal; 2018-04-21 08:00)
DX: K40.30 Unilateral inguinal hernia, with obstruction, without gangrene, not specified as recurrent (principal); F03.90 Unspecified dementia, unspecified severity, without behavioral disturbance, psychotic disturbance, mood disturbance, and anxiety; I10 Essential (primary) hypertension; E78.5 Hyperlipidemia, unspecified; G47.00 Insomnia, unspecified; Z79.899 Other long term (current) drug therapy; Z87.891 Personal history of nicotine dependence; Z92.3 Personal history of irradiation

== ENCOUNTER 2021-03-21 18:58 | Inpatient (IN) ==
[2021-03-21] MEDS ORDERED: LORazepam 2 MG/ML VIAL (IM USE) IM STA (20:04)
[2021-03-21 20:52] LABS: Bacteria Urine Automated Negative (Negative); Blood Urine Negative (Negative); Color Urine Dark Yellow; Epithelial Cell Urine Auto >30 /lpf (0-5); Glucose Urine UA Negative (Negative); Ketones Urine Trace (Negative); Leukocyte Esterase Urine Negative (Negative); Nitrite Urine Negative (Negative); Protein Urine Trace (Negative); Specific Gravity Urine 1.034 (1.000-1.030); Urobilinogen Urine Negative (Negative); pH Urine 5.5 (4.5-7.5)
[2021-03-21 20:53] LABS: Appearance Urine Clear (Clear); Bilirubin Urine 1+ (Negative)
--- NOTE | 2021-03-21 20:58 | CT Scan Report ---
CT OF THE HEAD WITHOUT CONTRAST CLINICAL HISTORY: Altered mental status. COMPARISON STUDY: Head CT April 21, 2018. CT DOSE: 614.27 mGy.cm TECHNIQUE: Helical axial images of the head were obtained without IV contrast. Automated exposure con trol was utilized for the study. A dose lowering technique was utilized adhering to the principles o f ALARA. FINDINGS: No acute intracranial hemorrhage, midline shift or mass effect is present. The ventricular system is unremarkable. The basal cisterns are patent. No extra-axial collections are present. There are no findings to suggest acute dural sinus thrombosis or acute territorial infarct. No significant calvarial abnormalities are present. Note is made of moderate atrophy. White matter hypodensity sugge sts small vessel disease. IMPRESSION: No acute intracranial findings. ACT 112: Negative or not required by law. Electronically signed by: Stanton Barnett M.D. 03/21/2021 8:56 PM
[2021-03-21 21:05] LABS: Basophils # (auto) 0.06 K/uL (0-0.2); Basophils % (auto) 0.9 %; Eosinophils # (auto) 0.09 K/uL (0-0.5); Eosinophils % (auto) 1.3 %; Hematocrit (blood only) 42.2 % (42-52); Hemoglobin 13.9 g/dL (14.0-18.0); Immature Granulocytes # (auto) 0.01 K/uL (0.00-0.02); Immature Granulocytes % (auto) 0.1 %; Lymphocytes # (auto) 1.52 K/uL (1.2-3.4); Lymphocytes % (auto) 22.5 %; Mean Corpuscular Hgb Conc 32.9 g/dL (32-36); Monocytes # (auto) 0.55 K/uL (0.11-0.59); Monocytes % (auto) 8.1 %; Neutrophils # (auto) 4.52 K/uL (1.4-6.5); Neutrophils % (auto) 67.1 %; Platelet Count 227 K/uL (130-400); RDW Coefficient of Variation 13.3 % (11.5-14.5); RDW Standard Deviation 47.3 fL (36.4-46.3); Red Blood Count 4.35 M/uL (4.7-6.1); White Blood Count 6.75 K/uL (4.8-10.8)
[2021-03-21 21:21] LABS: Albumin Level 3.9 gm/dl (3.4-5.0); BUN Creatinine Ratio 17.3 (10-20); Calcium 9.1 mg/dl (8.5-10.1); Creatinine Clr Calc Pharmacy 67.6 ml/min; Est GFR (African American) 93.2 ml/min; Est GFR (Non-African American) 80.4 ml/min; Magnesium 2.4 mg/dl (1.8-2.4); Potassium 3.7 mmol/L (3.5-5.1)
[2021-03-21 21:22] LABS: Amphetamines+Metham, Urine Neg (Neg); Barbiturates, Urine Neg (Neg); Benzodiazepine, Urine Neg (Neg); Cocaine, Urine Neg (Neg); MDMA (Ecstacy), Urine Neg (Neg); Methadone, Urine Neg (Neg); Opiate, Urine Neg (Neg); Phencyclidine, Urine Neg (Neg)
[2021-03-21 21:32] LABS: Bilirubin,Total 0.6 mg/dl (0.2-1); Thyroid Stimulating Hormone 1.53 uIu/ml (0.300-4.500); Total Protein 7.9 gm/dl (6.4-8.2)
[2021-03-21 21:35] LABS: Acetaminophen < 2 ug/ml (10-30); Salicylate < 1.7 mg/dl (2.8-20)
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
[2021-03-22] MEDS ORDERED: POLYETHYLENE (MIRALAX) 17 GM PACK PO PRN (01:41)
[2021-03-22] MEDS ORDERED: ACETAMINOPHEN 325 MG TAB PO PRN (01:41)
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
[2021-03-22] MEDS: OLANZapine 10 MG/2.1 ML SDV IM PRN ×3 (05:04→20:31)
[2021-03-22] MEDS ORDERED: [UNRECOGNIZED DRUG - REMARK] INTNAS SCH (09:00)
[2021-03-22] MEDS: LORazepam 1 MG TAB PO PRN ×2 (09:12→19:41)
[2021-03-22] MEDS: ATENOLOL 50 MG TABLET PO SCH (09:13)
[2021-03-22] MEDS: CETIRIZINE HCL 10 MG TABLET PO SCH (09:13)
[2021-03-22] MEDS: CYANOCOBALAMIN 500 MCG TABLET (VITAMIN B-12) PO SCH (09:14)
[2021-03-22] MEDS: DONEPEZIL HCL 5 MG TAB PO SCH (09:14)
[2021-03-22] MEDS: HALOPERIDOL ORAL SOLN 2 MG/ML PO SCH ×3 (13:40→20:39)
[2021-03-22] MEDS: HALOPERIDOL LACTATE 5 MG/ML 1 ML VIAL IM STA ×2 (13:40→14:19)
--- NOTE | 2021-03-22 13:49 | Hospitalist Progress Note ---
Date of Service March 22, 2021 Assessment & Plan Admission and Anticipated Discharge Date Admission Date: March 22, 2021 Subjective Patient restless, had one-on-one nursing staff however now 2 of them refusing to sit with the patient. Received p.o. Ativan in the morning which seemed to calm the patient down. Then received Zyprexa around lunchtime however did not work and kiko cummins was called about 2 hours later. Patient was put into soft restraints, and IM 2.5 Haldol given stat. Psychiatry was also contacted and recommend Haldol [id number], 2.5 p.o. 3 times daily. We will continue to monitor patient closely. Ludy De Dios MD Results & Data Results & Data ([facility]) Vital Signs (Past 12 Hours) Vital Signs Temp Pulse Pulse Resp BP Pulse Ox 03/22/21 09:17 68 03/22/21 02:10 36.5 C 52 L 22 174/79 H 97
[2021-03-22] MEDS: HEPARIN SOD 5,000 UNIT/0.5 ML VIAL SQ SCH ×2 (14:18→20:39)
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
[2021-03-22] MEDS: HALOPERIDOL LACTATE 5 MG/ML 1 ML VIAL IM PRN (17:40)
--- NOTE | 2021-03-22 18:26 | Electrocardiogram Report ---
Test Reason : Blood Pressure : / mmHG Vent. Rate : 054 BPM Atrial Rate : 054 BPM P-R Int : 184 ms QRS Dur : 098 ms QT Int : 456 ms P-R-T Axes : 063 031 064 degrees QTc Int : 432 ms Sinus bradycardia Otherwise normal ECG When compared with ECG of 23-APR-2018 16:44, No significant change was found Confirmed by Keshav Corcoran ([id number]) on 03/22/2021 6:25:48 PM Referred By: REFERRED SELF Confirmed By:Simba Corcoran
[2021-03-22] MEDS: SIMVASTATIN 40 MG TAB PO SCH (20:40)
[2021-03-23] MEDS: DONEPEZIL HCL 5 MG TAB PO SCH (11:57)
[2021-03-23] MEDS: CETIRIZINE HCL 10 MG TABLET PO SCH (11:58)
[2021-03-23] MEDS: CYANOCOBALAMIN 500 MCG TABLET (VITAMIN B-12) PO SCH (11:58)
[2021-03-23] MEDS: HALOPERIDOL ORAL SOLN 2 MG/ML PO SCH ×3 (11:59→21:05)
[2021-03-23] MEDS: HEPARIN SOD 5,000 UNIT/0.5 ML VIAL SQ SCH ×2 (11:59→21:06)
[2021-03-23] MEDS: ATENOLOL 50 MG TABLET PO SCH (12:03)
[2021-03-23 12:39] LABS: Basophils # (auto) 0.03 K/uL (0-0.2); Basophils % (auto) 0.4 %; Eosinophils # (auto) 0.07 K/uL (0-0.5); Hematocrit (blood only) 44.2 % (42-52); Hemoglobin 14.9 g/dL (14.0-18.0); Immature Granulocytes # (auto) 0.01 K/uL (0.00-0.02); Immature Granulocytes % (auto) 0.1 %; Lymphocytes # (auto) 0.92 K/uL (1.2-3.4); Lymphocytes % (auto) 12.7 %; Mean Corpuscular Hgb Conc 33.7 g/dL (32-36); Mean Corpuscular Volume 94.8 fL (80-100); Mean Platelet Volume 11.1 fL (7.4-10.4); Monocytes # (auto) 0.23 K/uL (0.11-0.59); Monocytes % (auto) 3.2 %; Neutrophils # (auto) 6.01 K/uL (1.4-6.5); Neutrophils % (auto) 82.6 %; Platelet Count 225 K/uL (130-400); RDW Coefficient of Variation 13.5 % (11.5-14.5); RDW Standard Deviation 46.4 fL (36.4-46.3); Red Blood Count 4.66 M/uL (4.7-6.1); White Blood Count 7.27 K/uL (4.8-10.8)
[2021-03-23 12:56] LABS: BUN Creatinine Ratio 13.8 (10-20); Calcium 9.3 mg/dl (8.5-10.1); Est GFR (African American) 95.1 ml/min; Magnesium 2.5 mg/dl (1.8-2.4); Potassium 4.1 mmol/L (3.5-5.1)
[2021-03-23 13:04] LABS: Estimated Average Glucose 117 mg/dl; Hemoglobin A1C 5.7 % (4.5-5.6)
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
[2021-03-23] MEDS: LORazepam 1 MG TAB PO PRN (21:06)
[2021-03-23] MEDS: SIMVASTATIN 40 MG TAB PO SCH (21:06)
[2021-03-23] MEDS: HALOPERIDOL LACTATE 5 MG/ML 1 ML VIAL IM PRN (23:01)
[2021-03-23] MEDS ORDERED: OLANZapine 10 MG/2.1 ML SDV IM STA (23:37)
[2021-03-24] MEDS: HALOPERIDOL ORAL SOLN 2 MG/ML PO SCH (10:40)
[2021-03-24] MEDS: DONEPEZIL HCL 5 MG TAB PO SCH (10:43)
[2021-03-24] MEDS: CETIRIZINE HCL 10 MG TABLET PO SCH (10:43)
[2021-03-24] MEDS: ATENOLOL 50 MG TABLET PO SCH (10:46)
[2021-03-24] MEDS: HEPARIN SOD 5,000 UNIT/0.5 ML VIAL SQ SCH ×2 (10:49→21:16)
[2021-03-24] MEDS: CYANOCOBALAMIN 500 MCG TABLET (VITAMIN B-12) PO SCH (10:49)
[2021-03-24] MEDS: HALOPERIDOL LACTATE 5 MG/ML 1 ML VIAL IM PRN (15:16)
[2021-03-24] MEDS ORDERED: HALOPERIDOL LACTATE 5 MG/ML 1 ML VIAL IM STA (16:23)
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
[2021-03-24] MEDS ORDERED: HALOPERIDOL ORAL SOLN 2 MG/ML PO SCH (21:00)
[2021-03-24] MEDS: SIMVASTATIN 40 MG TAB PO SCH (21:16)
[2021-03-25] MEDS: HALOPERIDOL LACTATE 5 MG/ML 1 ML VIAL IM PRN ×2 (00:25→05:01)
[2021-03-25 06:32] LABS: Hematocrit (blood only) 42.7 % (42-52); Hemoglobin 14.6 g/dL (14.0-18.0); Mean Corpuscular Hemoglobin 32.2 pg (25-34); Mean Corpuscular Hgb Conc 34.2 g/dL (32-36); Mean Corpuscular Volume 94.1 fL (80-100); Mean Platelet Volume 11.3 fL (7.4-10.4); Platelet Count 243 K/uL (130-400); RDW Coefficient of Variation 13.3 % (11.5-14.5); RDW Standard Deviation 46.1 fL (36.4-46.3); Red Blood Count 4.54 M/uL (4.7-6.1)
[2021-03-25] MEDS: CETIRIZINE HCL 10 MG TABLET PO SCH (10:03)
[2021-03-25] MEDS: ATENOLOL 50 MG TABLET PO SCH (10:03)
[2021-03-25] MEDS: CYANOCOBALAMIN 500 MCG TABLET (VITAMIN B-12) PO SCH (10:03)
[2021-03-25] MEDS: HEPARIN SOD 5,000 UNIT/0.5 ML VIAL SQ SCH (10:04)
--- NOTE | 2021-03-25 10:35 | Communication Note ---
Date of Service: March 25, 2021 Yesterday during the code cummins during which time he was irritable and unable to be redirected into his bed. Patient required an IM of haloperidol 2.5 mg at that time. In looking at the medication regimen of this older gentleman, second-generation antipsychotics would be preferred over first generation due to concern for dystonia. Of course if patient is unable to tolerate p.o. medication, IM medication will have to be used in which case the best treatment option is haloperidol. Recommendations: Haloperidol p.o. 3 times daily switched to Seroquel 50 mg p.o. 3 times daily Please attempt to give patient p.o. medication prior to administering any IMs Haloperidol IM every 4 hours as needed agitation still in place
[2021-03-25] MEDS: QUEtiapine FUMARATE 25 MG TABLET PO SCH ×2 (11:11→15:09)
[2021-03-25] MEDS ORDERED: OLANZapine 10 MG/2.1 ML SDV IM PRN (11:15)
--- NOTE | 2021-03-25 12:08 | XRay Report ---
XR chest 1V portable CLINICAL HISTORY: Altered mental status COMPARISON STUDY: 04/21/2018 FINDINGS: The heart is normal in size. There is no failure. There is no focal pulmonary consolidation . There are no pleural effusions. There are linear subsegmental areas of atelectasis/scarring at the left lung base.[ IMPRESSION: Portable supine study. No acute findings. ACT 112: Negative or not required by law. Electronically signed by: Celio Knox M.D. 03/25/2021 12:06 PM
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
== END 2021-03-25 17:27 | DRG 884 ==
LOC: ED 18:58 → 3N 03-22 00:29 → SUATTDRO 03-22 00:29 → 3N 03-22 01:13

== ENCOUNTER 2021-05-19 13:23 | Inpatient (IN) ==
--- NOTE | 2021-05-19 14:52 | Emergency Department Note ---
History of Present Illness General Chief complaint: Food Bolus Stated complaint: FOOD BOLUS Time Seen by Provider: 05/19/21 14:30 History of Present Illness 85-year-old male presents to the ED with a chief complaint of a choking episode and now inability to swallow saliva. The patient presents from the [facility]. He apparently had a choking episode while eating some scalloped potatoes. Heimlich maneuver was performed. The patient since has been unable to swallow his saliva. He is spitting up his saliva every few minutes. The patient denies any other complaints. He otherwise states he feels fine. No chest pains or trouble breathing. Home Medications Medication Instructions Recorded Confirmed Type cyanocobalamin (vitamin B-12) 1,000 mcg PO DAILY 03/21/21 05/19/21 History 1,000 mcg tablet (Vitamin B-12) atorvastatin 20 mg tablet 20 mg PO PM 05/19/21 05/19/21 History divalproex 125 mg capsule,delayed 250 mg PO TID 05/19/21 05/19/21 History release sprinkle (Depakote Sprinkles) loratadine 10 mg tablet 10 mg PO DAILY 05/19/21 05/19/21 History lorazepam 0.5 mg tablet (Ativan) 0.5 mg PO HS 05/19/21 05/19/21 History risperidone 0.25 mg tablet 0.5 mg PO BID 05/19/21 05/19/21 History risperidone 1 mg tablet (Risperdal) 1 mg PO HS 05/19/21 05/19/21 History Allergies Allergy/AdvReac Type Severity Reaction Status Date / Time ketoconazole Allergy Intermediate FIGUEREDO SKIN Verified 03/21/21 20:23 PER [facility] Past Med/Surg History Medical History Altered mental status Dementia HLD (hyperlipidemia) HTN (hypertension) Social History Smoking Status: Never smoker Hx Alcohol Use: No Preferred Language: Canadian Communication Ability: yes/ no Direct Of Real Estate Required: No Current Living Situation: Spouse Current Living Situation Comment: pt's dementia has worsened. feels unsafe Feels Safe at Home: Yes Assistive Devices: None Review of Systems A total of 10 systems reviewed and were otherwise negative Physical Exam Vital Signs Vital Signs - 24 hr 05/19/21 13:27 05/19/21 13:31 05/19/21 14:00 Temperature 36.7 C Temperature Source Oral Pulse Rate 84 85 86 Pulse Rate from SpO2 Sensor 82 86 Pulse Rhythm Regular Pulse Strength Normal Respiratory Rate 14 20 23 Respiratory Effort / Characteristics Non-Labored Spontaneous Respiratory Depth Normal Respiratory Pattern Regular Blood Pressure 137/79 137/79 152/69 H Blood Pressure Mean 98 98 96 Blood Pressure Position Sitting Pulse Oximetry 98 96 93 Oxygen Delivery Method Room Air Oxygen Flow Rate Sepsis Recent Fever Within 48 Hours No Sepsis New/Unexplained Change in Mental Status No Sepsis Action Taken by Nursing No Action Required Oxygen Flow Rate - Titration Pulse Oximetry Post Tiitration 05/19/21 14:30 05/19/21 15:01 05/19/21 15:30 Temperature Temperature Source Pulse Rate 89 85 80 Pulse Rate from SpO2 Sensor 84 85 89 Pulse Rhythm Pulse Strength Respiratory Rate 16 16 31 H Respiratory Effort / Characteristics Respiratory Depth Respiratory Pattern Blood Pressure 138/86 143/82 H 132/94 Blood Pressure Mean 103 102 106 Blood Pressure Position Pulse Oximetry 94 94 92 Oxygen Delivery Method Oxygen Flow Rate Sepsis Recent Fever Within 48 Hours Sepsis New/Unexplained Change in Mental Status Sepsis Action Taken by Nursing Oxygen Flow Rate - Titration Pulse Oximetry Post Tiitration 05/19/21 16:00 05/19/21 16:20 05/19/21 16:30 Temperature Temperature Source Pulse Rate 86 Pulse Rate from SpO2 Sensor 88 86 Pulse Rhythm Pulse Strength Respiratory Rate 20 24 Respiratory Effort / Characteristics Respiratory Depth Respiratory Pattern Blood Pressure 134/77 133/76 Blood Pressure Mean 96 95 Blood Pressure Position Pulse Oximetry 92 85 L 89 L Oxygen Delivery Method Nasal Cannula Oxygen Flow Rate 0 Sepsis Recent Fever Within 48 Hours Sepsis New/Unexplained Change in Mental Status Sepsis Action Taken by Nursing Oxygen Flow Rate - Titration 6 Pulse Oximetry Post Tiitration 94 CONSTITUTIONAL/VITAL SIGNS: Reviewed / noted above. GENERAL: Non-toxic in appearance. Normal evaluation, the patient would spit up saliva as it seems to be building up every few minutes. INTEGUMENTARY: Warm, dry, and [place]. HEAD: Normocephalic. EYES: without scleral icterus or trauma. ENT/OROPHARYNX: clear and moist. LYMPHADENOPATHY/NECK: Is supple without lymphadenopathy or meningismus. RESPIRATORY: Clear to auscultation bilaterally. No increased work of breathing. CARDIOVASCULAR: Regular rate and rhythm. GI/ABDOMEN: Soft and nontender. No organomegaly or pulsatile mass. EXTREMITIES: Warm and well perfused. BACK: No CVA tenderness. NEUROLOGICAL: Intact without focal deficits. PSYCHIATRIC: normal affect. MUSCULOSKELETAL: Normally developed with good muscle tone. TRIAGE NURSING DOCUMENTATION REVIEWED. Medical Decision Making Differential Diagnosis Differential includes aspiration, esophageal foreign body, esophageal injury, esophageal obstruction/mass Medical Records Attestation: I reviewed the patient's medical records. Home Medications Current Medication List: was personally reviewed by me Laboratory Data Attestation: I reviewed the patient's lab results. Result diagrams: 05/19/21 15:10 05/19/21 15:10 Lab Results 05/19/21 05/19/21 05/19/21 Range/Units 15:05 15:05 15:10 WBC 6.10 (4.8-10.8) K/uL RBC 4.17 L (4.7-6.1) M/uL Hgb 13.4 L (14.0-18.0) g/dL Hct 40.4 L (42-52) % MCV 96.9 (80-100) fL MCH 32.1 (25-34) pg MCHC 33.2 (32-36) g/dL RDW Std Deviation 49.4 H (36.4-46.3) fL RDW Coeff of Clive 13.9 (11.5-14.5) % Plt Count 235 (130-400) K/uL MPV 11.9 H (7.4-10.4) fL Immature Gran % (Auto) 0.2 % Neut % (Auto) 71.8 % Lymph % (Auto) 16.9 % [place] % (Auto) 9.0 % Eos % (Auto) 1.6 % Baso % (Auto) 0.5 % Neut # (Auto) 4.38 (1.4-6.5) K/uL Lymph # (Auto) 1.03 L (1.2-3.4) K/uL [place] # (Auto) 0.55 (0.11-0.59) K/uL Eos # (Auto) 0.10 (0-0.5) K/uL Baso # (Auto) 0.03 (0-0.2) K/uL Immature Gran # (Auto) 0.01 (0.00-0.02) K/uL Sodium (136-145) mmol/L Potassium (3.5-5.1) mmol/L Chloride (98-107) mmol/L Carbon Dioxide (21-32) mmol/L Anion Gap (3-11) BUN (7-18) mg/dl Creatinine (0.6-1.4) mg/dl Est Cr Clr Drug Dosing ml/min Est GFR ( Amer) ml/min Est GFR (Non-Af Amer) ml/min BUN/Creatinine Ratio (10-20) Glucose (70-99) mg/dl Calcium (8.5-10.1) mg/dl COVID-19 Eval Order Covid19 at [facility] SARS-CoV-2 (PCR) NEGATIVE (Negative) 05/19/21 Range/Units 15:10 WBC (4.8-10.8) K/uL RBC (4.7-6.1) M/uL Hgb (14.0-18.0) g/dL Hct (42-52) % MCV (80-100) fL MCH (25-34) pg MCHC (32-36) g/dL RDW Std Deviation (36.4-46.3) fL RDW Coeff of Clive (11.5-14.5) % Plt Count (130-400) K/uL MPV (7.4-10.4) fL Immature Gran % (Auto) % Neut % (Auto) % Lymph % (Auto) % [place] % (Auto) % Eos % (Auto) % Baso % (Auto) % Neut # (Auto) (1.4-6.5) K/uL Lymph # (Auto) (1.2-3.4) K/uL [place] # (Auto) (0.11-0.59) K/uL Eos # (Auto) (0-0.5) K/uL Baso # (Auto) (0-0.2) K/uL Immature Gran # (Auto) (0.00-0.02) K/uL Sodium 142 (136-145) mmol/L Potassium 3.8 (3.5-5.1) mmol/L Chloride 106 (98-107) mmol/L Carbon Dioxide 32 (21-32) mmol/L Anion Gap 4.0 (3-11) BUN 14 (7-18) mg/dl Creatinine 0.77 (0.6-1.4) mg/dl Est Cr Clr Drug Dosing 37.1 ml/min Est GFR ( Amer) 96.6 ml/min Est GFR (Non-Af Amer) 83.3 ml/min BUN/Creatinine Ratio 17.9 (10-20) Glucose 111 H (70-99) mg/dl Calcium 9.2 (8.5-10.1) mg/dl COVID-19 Eval Order SARS-CoV-2 (PCR) (Negative) Imaging Data Radiologist's Impression: Chest X-Ray 05/19/21 14:37 XR chest 1V portable INDICATION: choking episode. TECHNIQUE: Single frontal radiograph of the chest was obtained. Comparison: Comparison is made to chest one view 03/25/2021 FINDINGS: No lines and tubes are seen. The aorta is tortuous. The remainder of the cardiomediastinal silhouette is unremarkable. Lungs are underinflated but clear. No evidence of pleural effusion or pneumothorax. IMPRESSION: No acute chest disease. No evidence of aspiration. ACT 112: Negative or not required by law. Electronically signed by: Contreras Delgadillo M.D. 05/19/2021 3:06 PM MDM Narrative Patient presents after choking episode and now unable to swallow saliva. Clinically he has an esophageal obstruction on exam as he is unable to swallow his saliva and periodically spits up. Vital signs are stable. The patient had some desaturations into the mid to high 80s and required some oxygen during the latter part of his ED stay. He may be aspirating some saliva. I did suction some saliva from the patient's posterior oropharynx. The chest x-ray did not show acute process. Blood work was unremarkable and a Covid test was negative. I did speak with Dr. Beverly about the patient. He will take the patient to the OR. I also spoke with the hospitalist, per his request so the patient can be observed overnight. Impression & Plan Acute esophageal obstruction Discharge Plan Visit Data Chief Complaint: Food Bolus Stated Complaint: FOOD BOLUS Discharge Problem: Acute esophageal obstruction Patient Disposition: Being Evaluated by Hospitalist Forms Stand Alone Forms: My [facility] Prescriptions Prescriptions: No Action atorvastatin 20 mg Tablet 20 mg PO PM RF: 0 risperidone [Risperdal] 0.25 mg Tablet 0.5 mg PO BID RF: 0 lorazepam [Ativan] 0.5 mg Tablet 0.5 mg PO HS RF: 0 divalproex [Depakote Sprinkles] 125 mg Capsule, Delayed Rel Sprinkle 250 mg PO TID RF: 0 risperidone [Risperdal] 1 mg Tablet 1 mg PO HS RF: 0 loratadine 10 mg Tablet 10 mg PO DAILY RF: 0 cyanocobalamin (vitamin B-12) [Vitamin B-12] 1,000 mcg Tablet 1,000 mcg PO DAILY RF: 0 Referrals Referrals: Marshal Hernandez [Non-Staff] -
--- NOTE | 2021-05-19 15:07 | XRay Report ---
XR chest 1V portable INDICATION: choking episode. TECHNIQUE: Single frontal radiograph of the chest was obtained. Comparison: Comparison is made to chest one view 03/25/2021 FINDINGS: No lines and tubes are seen. The aorta is tortuous. The remainder of the cardiomediastinal silhouette is unremarkable. Lungs are underinflated but clear. No evidence of pleural effusion or pneumothorax. IMPRESSION: No acute chest disease. No evidence of aspiration. ACT 112: Negative or not required by law. Electronically signed by: Contreras Delgadillo M.D. 05/19/2021 3:06 PM
[2021-05-19 15:20] LABS: Basophils # (auto) 0.03 K/uL (0-0.2); Basophils % (auto) 0.5 %; Eosinophils % (auto) 1.6 %; Hematocrit (blood only) 40.4 % (42-52); Hemoglobin 13.4 g/dL (14.0-18.0); Immature Granulocytes # (auto) 0.01 K/uL (0.00-0.02); Immature Granulocytes % (auto) 0.2 %; Lymphocytes # (auto) 1.03 K/uL (1.2-3.4); Lymphocytes % (auto) 16.9 %; Mean Corpuscular Hemoglobin 32.1 pg (25-34); Mean Corpuscular Hgb Conc 33.2 g/dL (32-36); Mean Corpuscular Volume 96.9 fL (80-100); Mean Platelet Volume 11.9 fL (7.4-10.4); Monocytes # (auto) 0.55 K/uL (0.11-0.59); Neutrophils # (auto) 4.38 K/uL (1.4-6.5); Neutrophils % (auto) 71.8 %; Platelet Count 235 K/uL (130-400); RDW Coefficient of Variation 13.9 % (11.5-14.5); RDW Standard Deviation 49.4 fL (36.4-46.3); Red Blood Count 4.17 M/uL (4.7-6.1)
[2021-05-19 15:36] LABS: BUN Creatinine Ratio 17.9 (10-20); Calcium 9.2 mg/dl (8.5-10.1); Creatinine Clr Calc Pharmacy 37.1 ml/min; Est GFR (African American) 96.6 ml/min; Est GFR (Non-African American) 83.3 ml/min; Potassium 3.8 mmol/L (3.5-5.1)
--- NOTE | 2021-05-19 16:48 | Gastrointestinal Consultation ---
Date of Consultation May 19, 2021 History of Present Illness Reason for Consultation: Food Bolus Requesting Physician: Dr. Dey History of Present Illness Mr. Jayson Padilla is an 85 yr old male pt of Dr. Pryor with a hx Allergies Allergy/AdvReac Type Severity Reaction Status Date / Time ketoconazole Allergy Intermediate FIGUEREDO SKIN Verified 03/21/21 20:23 PER [facility] Home Medications Medication Instructions Recorded Confirmed Type cyanocobalamin (vitamin B-12) 1,000 mcg PO DAILY 03/21/21 05/19/21 History 1,000 mcg tablet (Vitamin B-12) atorvastatin 20 mg tablet 20 mg PO PM 05/19/21 05/19/21 History divalproex 125 mg capsule,delayed 250 mg PO TID 05/19/21 05/19/21 History release sprinkle (Depakote Sprinkles) loratadine 10 mg tablet 10 mg PO DAILY 05/19/21 05/19/21 History lorazepam 0.5 mg tablet (Ativan) 0.5 mg PO HS 05/19/21 05/19/21 History risperidone 0.25 mg tablet 0.5 mg PO BID 05/19/21 05/19/21 History risperidone 1 mg tablet (Risperdal) 1 mg PO HS 05/19/21 05/19/21 History Patient History Medical History Altered mental status Dementia HLD (hyperlipidemia) HTN (hypertension) Social History Smoking Status: Never smoker Hx Alcohol Use: No Preferred Language: Swedish Communication Ability: yes/ no Seasonal Retail Merchandiser Required: No Current Living Situation: Spouse Current Living Situation Comment: pt's dementia has worsened. feels unsafe Feels Safe at Home: Yes Assistive Devices: None Results & Data ([facility]) Vital Signs (Past 12 Hours) Vital Signs Temp Pulse Resp BP Pulse Ox 05/19/21 16:00 20 134/77 92 05/19/21 15:30 80 31 H 132/94 92 05/19/21 15:01 85 16 143/82 H 94 05/19/21 14:30 89 16 138/86 94 05/19/21 14:00 86 23 152/69 H 93 05/19/21 13:31 85 20 137/79 96 05/19/21 13:27 36.7 C 84 14 137/79 98
--- NOTE | 2021-05-19 17:01 | Communication Note ---
Date of Service: May 19, 2021 I was notified around 4:30 of this pt by Dr. Dey in the ED. Pt of Dr. Pryor. Prior endoscopy by Dr. Amaro in 2009. Hx of HTN, Hyperlipidemia, anal cancer (surgery, radiation 2009). Saw and evaluated the pt. Not able to swallow saliva. Had one brief episode of desaturation, back of throat suctioned for large amt of saliva by Dr. Dey with improvement. Discussed with Dr. Beaulieu at 4:45 who recommended that I call the evening interventional pain physician GI. I called and spoke with , giving report who took over the care of this patient.
[2021-05-19] MEDS ORDERED: PROPOFOL IV EMULSION 10 MG/ML 20 ML VIAL IV ONE (17:16)
[2021-05-19] MEDS ORDERED: fentaNYL citrate 100 MCG/2 ML VIAL ONE (17:16)
[2021-05-19] MEDS ORDERED: ONDANSETRON INJ 2 MG/ML 2 ML VIAL ONE (17:16)
[2021-05-19] MEDS ORDERED: LIDOCAINE 2% 2 ML VIAL/AMP(20MG/ML) INFIL ONE (17:16)
--- NOTE | 2021-05-19 17:30 | Gastrointestinal Consultation ---
Date of Consultation May 19, 2021 Assessment & Plan (1) Acute esophageal obstruction: (2) Dysphagia: food bolus causing hypoxia and inability to swallow saliva Recs: NPO EGD now to relieve obstruction aspiration precautions admit to medicine for monitoring overnight Thank you for allowing me to participate in the care of this patient History of Present Illness History of Present Illness 85-year-old male presents to the ED with a food bolus and dysphagia. He was eating scalloped potatoes at the group home today and began to have a choking episode, heimlich was performed. He cannot swallow his secretions and is sptting up his saliva. labs reviewed, hypoxia is noted. Allergies Allergy/AdvReac Type Severity Reaction Status Date / Time ketoconazole Allergy Intermediate FIGUEREDO SKIN Verified 03/21/21 20:23 [place] [facility] [place] Medications Medication Instructions Recorded Confirmed Type cyanocobalamin (vitamin B-12) 1,000 mcg PO DAILY 03/21/21 05/19/21 History 1,000 mcg tablet (Vitamin B-12) atorvastatin 20 mg tablet 20 mg PO PM 05/19/21 05/19/21 History divalproex 125 mg capsule,delayed 250 mg PO TID 05/19/21 05/19/21 History release sprinkle (Depakote Sprinkles) loratadine 10 mg tablet 10 mg PO DAILY 05/19/21 05/19/21 History lorazepam 0.5 mg tablet (Ativan) 0.5 mg PO HS 05/19/21 05/19/21 History risperidone 0.25 mg tablet 0.5 mg PO BID 05/19/21 05/19/21 History risperidone 1 mg tablet (Risperdal) 1 mg PO HS 05/19/21 05/19/21 History Patient History Medical History Altered mental status Dementia HLD (hyperlipidemia) HTN (hypertension) Social History Smoking Status: Never smoker Hx Alcohol Use: No Preferred Language: Uruguayan Communication Ability: yes/ no Aircraft Restorer Required: No Current Living Situation: Spouse Current Living Situation Comment: pt's dementia has worsened. feels unsafe Feels Safe at Home: Yes Assistive Devices: None Review of Systems 2 Constitutional: no fever, no chills and no weight loss Eyes: as per Subjective / HPI Ear, Nose, Mouth, Throat: as per Subjective / HPI Respiratory: no dyspnea and no dyspnea on exertion Cardiovascular: no chest pain and no palpitations Gastrointestinal: as per Subjective / HPI Musculoskeletal: no joint pain and no swelling Integumentary: no rash and no lesions Neurologic: no numbness and no paresthesia Psychiatric: no depression and no anxiety Endocrine: no fatigue Hematologic / Lymphatic: no easy bleeding and no easy bruising Physical Exam Constitutional: WD/WN, vitals as above Eyes: EOM intact bilaterally Neck: normal visual inspection Respiratory: normal respiratory effort, lungs clear to auscultation Cardiovascular: RRR, no murmur, no edema Gastrointestinal (Abdomen): Inspection/Auscultation: abdomen normal to inspection; abdomen not distended Percussion/Palpation: abdomen soft; abdomen nontender and no hepatosplenomegaly Musculoskeletal: Extremities: no cyanosis Gait: normal gait Skin: no rashes, warm and dry Neurologic: moves all extremities Psychiatric: A+Ox3, euthymic affect Results & Data ([facility]) Vital Signs (Past 12 Hours) Vital Signs Temp Pulse Resp BP Pulse Ox 05/19/21 16:30 86 24 133/76 89 L 05/19/21 16:20 85 L 05/19/21 16:00 20 134/77 92 05/19/21 15:30 80 31 H 132/94 92 05/19/21 15:01 85 16 143/82 H 94 05/19/21 14:30 89 16 138/86 94 05/19/21 14:00 86 23 152/69 H 93 05/19/21 13:31 85 20 137/79 96 05/19/21 13:27 36.7 C 84 14 137/79 98 PG Care Time/CCT Total # of Minutes Spent Total Time Spent with Patient: Total time spent is greater than 50% in coordination of care (as documented) at patient's floor/unit and/or counseling patient: Coding Level of Care Code INT OBSERVATION CARE 70M LVL 3 Diagnoses Acute esophageal obstruction K22.2 Dysphagia R13.10
--- NOTE | 2021-05-19 17:46 | Anesthesiology Consultation ---
Date of Service May 19, 2021 Assessment & Plan Chart Review Chart Review: Acceptable Risk for Surgery (necessary surgery) and Patient NOT seen in Pre Admission Testing Consults Requested none History Surgery Operation Date: 05/19/21 12:30 Proposed Procedures p Esophagogastroduodenoscopy for Food Bolus - Mario Beverly MD Height/Weight Height: 5 ft 10 in Weight: 75.1 kg Allergies Allergy/AdvReac Type Severity Reaction Status Date / Time ketoconazole Allergy Intermediate FIGUEREDO SKIN Verified 03/21/21 20:23 PER [facility] Medications Home Medications Medication Instructions Recorded Confirmed Last Taken cyanocobalamin (vitamin B-12) 1,000 mcg PO DAILY 03/21/21 05/19/21 05/19/21 1,000 mcg tablet (Vitamin B-12) atorvastatin 20 mg tablet 20 mg PO PM 05/19/21 05/19/21 05/18/21 18:00 divalproex 125 mg capsule,delayed 250 mg PO TID 05/19/21 05/19/21 05/19/21 08:00 release sprinkle (Depakote Sprinkles) loratadine 10 mg tablet 10 mg PO DAILY 05/19/21 05/19/21 05/19/21 lorazepam 0.5 mg tablet (Ativan) 0.5 mg PO HS 05/19/21 05/19/21 05/18/21 risperidone 0.25 mg tablet 0.5 mg PO BID 05/19/21 05/19/21 05/19/21 risperidone 1 mg tablet (Risperdal) 1 mg PO HS 05/19/21 05/19/21 05/18/21 NPO Date Last Intake of Fluids: 05/19/21 Time Last Intake of Fluids: 12:00 Date Last Intake of Solids: 05/19/21 Time Last Intake of Solids: 12:00 Past Medical History Medical History Altered mental status Dementia HLD (hyperlipidemia) HTN (hypertension) Social History Smoking Status: Never smoker Hx Alcohol Use: No substance use type: does not use Physical Exam Vital Signs Last Vital Signs Temp 36.7 C 05/19/21 17:38 Pulse 89 05/19/21 17:38 Resp 18 05/19/21 17:38 BP 154/83 H 05/19/21 17:38 Pulse Ox 96 05/19/21 17:38 Testing Laboratory Results 05/19/21 15:10 05/19/21 15:10 Electrocardiogram Date: 03/22/21 Findings: + SB @ (69)
[2021-05-19] MEDS ORDERED: ATROPINE SULFATE 0.1 MG/ML 10ML SYR IV PRN (17:50)
[2021-05-19] MEDS ORDERED: ONDANSETRON INJ 2 MG/ML 2 ML VIAL IV PRN (17:50)
[2021-05-19] MEDS ORDERED: PHENYLEPHRINE 100MCG/ML 5ML SYR IV PRN (17:50)
[2021-05-19] MEDS ORDERED: LABETALOL HCL IV 5 MG/ML 20ML IV PRN (17:50)
[2021-05-19] MEDS ORDERED: ePHEDrine sulfate 50 MG/ML AMP IV PRN (17:50)
--- NOTE | 2021-05-19 18:05 | History & Physical Report ---
Date of Service May 19, 2021 Assessment & Plan (1) Acute esophageal obstruction: Plan: -Admit to [facility] with telemetry -Patient presenting from [facility] after a choking episode that required the Heimlich maneuver -S/p EGD with removal of unchewed food -Keep n.p.o., speech eval tomorrow (2) Acute respiratory failure with hypoxia: Plan: -85% on room air, currently requiring 6 L of oxygen via nasal cannula -?? Aspiration -Start empiric IV Unasyn -Empiric nebs -Wean O2 as able (3) Dementia: Plan: -Stable, at baseline -Discharge back to [facility] (4) DVT prophylaxis: Plan: -SQ heparin History of Present Illness Chief Complaint: Choking episode Primary Care Provider: Michele Sánchez MD 85-year-old male with PMH dementia, HTN, dyslipidemia, squamous cell anal carcinoma, and other problems to below who presents the ED from [facility] for evaluation after a choking episode and inability to swallow saliva. Due to patient's underlying dementia, history is unobtainable from him. Patient had a choking episode this evening with dinner and required the Heimlich maneuver. Subsequently he was unable to swallow saliva. He was then transferred the ED for further evaluation. In the ED, patient became hypoxic at 85% on room air, currently requiring 6 L of oxygen via nasal cannula. Labs are unremarkable. GI has evaluated the patient and will be taking the patient to the OR for EGD. Allergies Allergy/AdvReac Type Severity Reaction Status Date / Time ketoconazole Allergy Intermediate FIGUEREDO SKIN Verified 03/21/21 20:23 PER [facility] Home Medications Medication Instructions Recorded Confirmed Type cyanocobalamin (vitamin B-12) 1,000 mcg PO DAILY 03/21/21 05/19/21 History 1,000 mcg tablet (Vitamin B-12) atorvastatin 20 mg tablet 20 mg PO PM 05/19/21 05/19/21 History divalproex 125 mg capsule,delayed 250 mg PO TID 05/19/21 05/19/21 History release sprinkle (Depakote Sprinkles) loratadine 10 mg tablet 10 mg PO DAILY 05/19/21 05/19/21 History lorazepam 0.5 mg tablet (Ativan) 0.5 mg PO HS 05/19/21 05/19/21 History risperidone 0.25 mg tablet 0.5 mg PO BID 05/19/21 05/19/21 History risperidone 1 mg tablet (Risperdal) 1 mg PO HS 05/19/21 05/19/21 History Past Med/Surg History Medical History (Updated 05/19/21 @ 19:58 by KASSIDY Flood) Chronic rhinitis Dementia HLD (hyperlipidemia) HTN (hypertension) Incarcerated inguinal hernia "s/p repair on 04/21/18" Insomnia Squamous cell cancer, anus "8 years ago, no recurrence. Follows surgery in [place]" Family History Other Family history unobtainable Social History Smoking Status: Never smoker Hx Alcohol Use: No Preferred Language: Slovak Communication Ability: yes/ no Furnace Maintenance Required: No Current Living Situation: Spouse Current Living Situation Comment: pt's dementia has worsened. feels unsafe Feels Safe at Home: Yes Assistive Devices: None Review of Systems Review of Systems: Unobtainable due to cognitive status Physical Exam Constitutional: WD/WN, vitals as above Eyes: PERRL, conjunctivae normal, anicteric sclerae ENMT: external ear and nose normal, oropharynx normal Respiratory: normal respiratory effort; no respiratory distress Auscultation: + diminished lung sounds Cardiovascular: Rate/Rhythm: regular rate and regular rhythm Vessels: normal peripheral pulses Extremities: no edema Gastrointestinal (Abdomen): normal bowel sounds, soft, nontender, no h epatosplenomegaly Musculoskeletal: no cyanosis or clubbing, extremities motor strength 5/5 Skin: no rashes, warm and dry Neurologic: PERRL, EOMI, accommodation nl, no face palsy, no dysarthria Psychiatric: Orientation: alert and oriented to person; + not oriented to place and + not oriented to time Insight: + limited insight Results & Data Results & Data ([facility]) Vital Signs (Past 12 Hours) Vital Signs Temp Pulse Pulse Resp BP BP Pulse Ox 05/19/21 17:38 36.7 C 89 18 154/83 H 96 05/19/21 17:22 141/77 H 91 05/19/21 17:00 85 24 127/89 91 05/19/21 16:30 86 24 133/76 89 L 05/19/21 16:20 85 L 05/19/21 16:00 20 134/77 92 05/19/21 15:30 80 31 H 132/94 92 05/19/21 15:01 85 16 143/82 H 94 05/19/21 14:30 89 16 138/86 94 05/19/21 14:00 86 23 152/69 H 93 05/19/21 13:31 85 20 137/79 96 05/19/21 13:27 36.7 C 84 14 137/79 98 Laboratory Results Short CBC 05/19/21 Range/Units 15:10 WBC 6.10 (4.8-10.8) K/uL Hgb 13.4 L (14.0-18.0) g/dL Hct 40.4 L (42-52) % Plt Count 235 (130-400) K/uL BMP 05/19/21 15:10 Sodium 142 Potassium 3.8 Chloride 106 Carbon Dioxide 32 BUN 14 Creatinine 0.77 Glucose 111 H Calcium 9.2 Diagnostic Findings Chest X-Ray 05/19/21 14:37 XR chest 1V portable INDICATION: choking episode. TECHNIQUE: Single frontal radiograph of the chest was obtained. Comparison: Comparison is made to chest one view 03/25/2021 FINDINGS: No lines and tubes are seen. The aorta is tortuous. The remainder of the cardiomediastinal silhouette is unremarkable. Lungs are underinflated but clear. No evidence of pleural effusion or pneumothorax. IMPRESSION: No acute chest disease. No evidence of aspiration. ACT 112: Negative or not required by law. Electronically signed by: Contreras Delgadillo M.D. 05/19/2021 3:06 PM Code Status & VTE Plan Code Status Patient is a DNR as per my discussion with patient's who is at the bedside. VTE Prophylaxis Plan VTE Prophylaxis will be ordered: Yes
[2021-05-19] MEDS ORDERED: SUCCINYLCHOLINE CHLORIDE 20 MG/ML 10 ML VIAL IV ONE (18:08)
[2021-05-19] MEDS ORDERED: ePHEDrine sulfate 50 MG/ML SYR ONE (18:08)
--- NOTE | 2021-05-19 18:38 | GI REPORT ---
Patient Name: Jayson Padilla Procedure Date: 05/19/2021 5:25 PM Date of : 1935 Admit Type: Emergency Department Age: 85 Gender: Male Attending MD: Mario Beverly MD Procedure: Upper GI endoscopy Providers: Mario Beverly MD Referring MD: Marshal Hernandez Indications: Dysphagia, Foreign body in the esophagus Medicines: Monitored Anesthesia Care Complications: No immediate complications. Estimated blood loss: None. Estimated Blood Loss: Estimated blood loss: none. Procedure: Pre-Anesthesia Assessment: - Prior Anticoagulants: The patient has taken no previous anticoagulant or antiplatelet agents. - ASA Grade Assessment: II - A patient with mild systemic disease. After obtaining informed consent, the endoscope was passed under direct vision. Throughout the procedure, the patient's blood pressure, pulse, and oxygen saturations were monitored continuously. The Endoscope was introduced through the mouth, and advanced to the second part of duodenum. The upper GI endoscopy was accomplished without difficulty. The patient tolerated the procedure well. Findings: Food was found in the upper third of the esophagus, in the middle third of the esophagus and in the lower third of the esophagus. Removal of food was accomplished using cap suction. Much of the potatoes appeared unchewed and large. Estimated blood loss: none. One benign-appearing, intrinsic mild stenosis was found near the GE junction. The stenosis was traversed. A TTS dilator was passed through the scope. Dilation with a 15-16.5-18 mm balloon dilator was performed to 18 mm. The dilation site was examined following endoscope reinsertion and showed mild mucosal disruption. Estimated blood loss: none. A medium amount of food (residue) was found in the gastric fundus. The duodenal bulb and second portion of the duodenum were normal. Estimated blood loss: none. Impression: - Food in the upper third of the esophagus, in the middle third of the esophagus and in the lower third of the esophagus. Removal was successful. - Benign-appearing esophageal stenosis. Dilated. - A medium amount of food (residue) in the stomach. - Normal duodenal bulb and second portion of the duodenum. Recommendation: - [facility]. - NPO today. -speech and swallow eval in the morning, he needs to chew his food more thoroughly or this will likely happen again. -aspiration precautions, consider abx if febrile -supportive care -rest as per primary team Mario Beverly MD 05/19/2021 6:38:43 PM This report has been signed electronically. Note Initiated On: 05/19/2021 5:25 PM Number of Addenda: 0 I attest to the content of the Intraoperative Record and orders documented therein, exceptions below {[id number]}
--- NOTE | 2021-05-19 18:40 | Procedure Note ---
Procedure Note Date of Service May 19, 2021 Note GI brief post op note EGD findings: large bolus of food, potatoes and veggies, mostly unchewed in the middle and distal esophagus. Removed via cap suction. Mild stenosis near GE junction, dilated to 18 mm with TTS balloon with mild disruption. Recs: NPO speech and swallow eval in the morning, he needs to chew his food much more otherwise this will likely happen again supportive care aspiration precautions, consider abx if febrile rest as per primary team Mario Beverly MD Gastroenterology Coding
--- NOTE | 2021-05-19 19:31 | Anesthesiology Progress Note ---
Date of Service May 19, 2021 Anesthesia Post Procedure Vital Signs Vital Signs: Temp Pulse Pulse Pulse Resp BP BP 05/19/21 19:15 100 H 26 H 145/77 H 05/19/21 19:05 94 H 26 H 146/80 H 05/19/21 18:55 100 H 18 157/79 H 05/19/21 18:47 36.2 C L 102 H 21 130/93 05/19/21 17:38 36.7 C 89 18 154/83 H 05/19/21 17:22 141/77 H 05/19/21 17:00 85 24 127/89 05/19/21 16:30 86 24 133/76 05/19/21 16:20 05/19/21 16:00 20 134/77 05/19/21 15:30 80 31 H 132/94 05/19/21 15:01 85 16 143/82 H 05/19/21 14:30 89 16 138/86 05/19/21 14:00 86 23 152/69 H 05/19/21 13:31 85 20 137/79 05/19/21 13:27 36.7 C 84 14 137/79 Pulse Ox 05/19/21 19:15 91 05/19/21 19:05 94 05/19/21 18:55 95 05/19/21 18:47 93 05/19/21 17:38 96 05/19/21 17:22 91 05/19/21 17:00 91 05/19/21 16:30 89 L 05/19/21 16:20 85 L 05/19/21 16:00 92 05/19/21 15:30 92 05/19/21 15:01 94 05/19/21 14:30 94 05/19/21 14:00 93 05/19/21 13:31 96 05/19/21 13:27 98 Transfer of Care Handoff Completed per policy Notes Mental Status: alert / awake / arousable Patient Amnestic to Procedure: Yes Nausea / Vomiting: adequately controlled Pain: adequately controlled Airway Patency, RR, SpO2: see Notes below BP & HR: stable & adequate Hydration State: stable & adequate Anesthetic Complications: no major complications apparent and Pt Satisfied with anesthetic care Notes: The patient tolerated the procedure well. He was intubated and extubated without incident although he did require suctioning for phlegm in his airway on intubation. Preoperative SpO2 was 89 on room air which went up to the mid 90s with face mask oxygen. The patient is awake in PACU at his baseline which is oriented to self. He does follow commands. His lungs are clear but he has a "wet" cough in his upper airway. He is not able to cough any phlegm up on his own. A small amount of white phlegm was suctioned from his throat. His SpO2 is now in the 90s on face mask oxygen. His other vital signs are stable. HR is in the 80s to 90s while resting but goes to 100 when he coughs. The patient will go to telemetry overnight where he will have continuous pulse oximetry.
[2021-05-19] MEDS ORDERED: ACETAMINOPHEN 325 MG TAB PO PRN (20:29)
[2021-05-19] MEDS ORDERED: ALBUT/IPRATROP 3MG/0.5MG NEB 3 ML VIAL NEB PRN (20:29)
[2021-05-19] MEDS: LORazepam 0.5 MG TAB PO SCH ×2 (22:18→23:18)
[2021-05-19] MEDS: ATORVASTATIN 20 MG TAB PO SCH ×2 (22:18→23:18)
[2021-05-19] MEDS: AMPICILLIN/SULBACTAM SOD 3,000 MG in 0.9 % SODIUM CHLORIDE 100 ML IV SCH (22:18)
[2021-05-19] MEDS: DIVALPROEX SODIUM SPRINKLE 125 MG CAP PO SCH ×2 (22:19→23:18)
[2021-05-19] MEDS: risperiDONE 1 MG TABLET PO SCH ×2 (22:19→23:18)
[2021-05-19] MEDS: HEPARIN SOD 5,000 UNIT/0.5 ML VIAL SQ SCH (22:24)
[2021-05-19] MEDS ORDERED: POTASSIUM CHLORIDE 40 MEQ in SODIUM CHLORIDE 0.45 % 1,000 ML IV SCH (23:30)
[2021-05-19] MEDS ORDERED: XOPENEX/ATROVENT 1.25mg/0.5MG NEB COMBO NEB PRN (23:39)
[2021-05-19] MEDS ORDERED: IPRATROPIUM BROMIDE NEB SOLN 0.02% 2.5 ML VIAL INH PRN (23:45)
[2021-05-19] MEDS ORDERED: LEVALBUTEROL 1.25MG/0.5ML NEB INH PRN (23:45)
[2021-05-19] MEDS: ACETAMINOPHEN 1,000 MG/100 ML VIAL IV PRN (23:54)
[2021-05-20 00:04] LABS: Base Excess ABG 2.6 mEq/L (-9-1.8); HCO3 ABG 26 mmol/L (19-24); Oxygen Saturation ABG 96.4 % (90-95); PCO2 ABG 37 mmHg (35-46); PO2 ABG 78 mmHg (80-95); pH ABG 7.47 (7.35-7.45)
[2021-05-20 00:05] LABS: Allen Test POS (Pos)
[2021-05-20] MEDS ORDERED: methylPREDNISolone 20 MG in SYRINGE 0 ML IV STA (00:20)
[2021-05-20] MEDS ORDERED: POTASSIUM CHLORIDE 20 MEQ in LACTATED RINGER'S 1,000 ML IV ONE (01:05)
[2021-05-20] MEDS: VALPROATE SOD 500 MG in DEXTROSE 5% 50 ML IV SCH ×2 (02:25→11:03)
[2021-05-20] MEDS: MAGNESIUM SULFATE / D5W 1 GM/100 ML BAG IV SCH ×2 (02:25→04:26)
[2021-05-20] MEDS: AMPICILLIN/SULBACTAM SOD 3,000 MG in 0.9 % SODIUM CHLORIDE 100 ML IV SCH ×4 (04:25→19:57)
[2021-05-20] MEDS ORDERED: POTASSIUM CHLORIDE 40 MEQ in SODIUM CHLORIDE 0.45 % 1,000 ML IV SCH (05:00)
[2021-05-20] MEDS ORDERED: POTASSIUM CHLORIDE 20 MEQ in LACTATED RINGER'S 1,000 ML IV SCH (05:30)
[2021-05-20] MEDS: HEPARIN SOD 5,000 UNIT/0.5 ML VIAL SQ SCH ×3 (05:48→21:36)
[2021-05-20 06:55] LABS: Hematocrit (blood only) 37.8 % (42-52); Hemoglobin 12.3 g/dL (14.0-18.0); Mean Corpuscular Hemoglobin 32.1 pg (25-34); Mean Corpuscular Hgb Conc 32.5 g/dL (32-36); Mean Corpuscular Volume 98.7 fL (80-100); Mean Platelet Volume 11.5 fL (7.4-10.4); Platelet Count 209 K/uL (130-400); RDW Standard Deviation 50.3 fL (36.4-46.3); Red Blood Count 3.83 M/uL (4.7-6.1); White Blood Count 15.56 K/uL (4.8-10.8)
[2021-05-20 07:32] LABS: BUN Creatinine Ratio 18.4 (10-20); Calcium 8.8 mg/dl (8.5-10.1); Creatinine Clr Calc Pharmacy 63.1 ml/min; Est GFR (African American) 90.6 ml/min; Est GFR (Non-African American) 78.2 ml/min; Magnesium 2.5 mg/dl (1.8-2.4); Potassium 4.3 mmol/L (3.5-5.1)
[2021-05-20] MEDS: LORATADINE 10 MG TAB PO SCH (09:46)
[2021-05-20] MEDS: CYANOCOBALAMIN 500 MCG TABLET (VITAMIN B-12) PO SCH (09:46)
[2021-05-20] MEDS: risperiDONE 0.5 MG TABLET PO SCH ×2 (09:47→16:00)
--- NOTE | 2021-05-20 15:06 | Hospitalist Progress Note ---
Date of Service May 20, 2021 Assessment & Plan (1) Acute esophageal obstruction: Plan: Presenting from [facility] after a choking episode that required the Heimlich maneuver S/P EGD showed food was found in the upper third of the esophagus, in the middle third of the esophagus and in the lower third of the esophagus. large piece of Potatoes appear unchewed. removal of food was accomplished using cap Suction by Gastro and dilation of the esophageal done. Speech on board recommended moist and minced diet Continue aspiration precaution (2) Acute respiratory failure with hypoxia: Plan: Mostly due to aspiration CXR showed no acute finding WBC and lactic acid were elevated Continue IV Unasyn Continue oxygen supplement Will repeat CXR in am Elevated Lactic acid Mostly related to hypoxia Lactic acid increase to 3 Will give gentle hydration and monitor Latic acid Continue IV unasyn for now Will follow blood cx Hypomagnesemia Mg on admission 1.6, replaced Mg 2.5 today (3) Dementia: Plan: -Stable, at baseline -Discharge back to [facility] (4) DVT prophylaxis: Plan: -SQ heparin Admission and Anticipated Discharge Date Admission Date: May 19, 2021 Subjective Pt was seen and examined for follow up of dysphagia Lying in bed with no acute distress Continue to require oxygen supplement Pt is calm and no aggressive behavior noted Denies any chest pain, palpitation and fever Review of Systems Review of Systems: All systems reviewed & are unremarkable except as noted in Subjective Physical Exam Physical Exam: General- No acute distress Head- atraumatic Eyes- PERRL, EOMI, ENT- oropharynx clear Neck- supple, no JVD Lungs- poor air entry Heart- regular rhythm; no murmur Abdomen- normal bowel sounds, soft, nontender Extremities- no calf tenderness Neuro- alert, awake, PERRL, EOMI; no facial palsy; no dysarthria, dementia Skin- warm & dry Results & Data Results & Data ([facility]) Vital Signs (Past 12 Hours) Vital Signs Temp Pulse Pulse Resp BP Pulse Ox 05/20/21 11:02 36.8 C 78 16 101/55 L 96 05/20/21 03:00 126 H 05/20/21 02:49 37.4 C 88 20 104/54 L 94
[2021-05-20] MEDS ORDERED: SODIUM CHLORIDE 0.9% 1000ML 1,000 ML IV SCH (15:15)
[2021-05-20] MEDS: ACETAMINOPHEN 1,000 MG/100 ML VIAL IV PRN ×2 (15:42→22:55)
[2021-05-20] MEDS: LORazepam 0.5 MG TAB PO SCH (19:57)
[2021-05-20] MEDS: DIVALPROEX SODIUM SPRINKLE 125 MG CAP PO SCH (21:26)
[2021-05-20] MEDS: risperiDONE 1 MG TABLET PO SCH (21:26)
[2021-05-20] MEDS: ATORVASTATIN 20 MG TAB PO SCH (21:32)
[2021-05-21] MEDS: AMPICILLIN/SULBACTAM SOD 3,000 MG in 0.9 % SODIUM CHLORIDE 100 ML IV SCH ×4 (03:49→20:44)
[2021-05-21] MEDS ORDERED: KETOROLAC TROMETHAMINE 15 MG/ML VIAL IV ONE (04:43)
[2021-05-21] MEDS: HEPARIN SOD 5,000 UNIT/0.5 ML VIAL SQ SCH ×3 (06:20→21:13)
[2021-05-21 06:35] LABS: Basophils # (auto) 0.03 K/uL (0-0.2); Basophils % (auto) 0.3 %; Eosinophils # (auto) 0.02 K/uL (0-0.5); Eosinophils % (auto) 0.2 %; Hematocrit (blood only) 32.8 % (42-52); Hemoglobin 10.5 g/dL (14.0-18.0); Immature Granulocytes # (auto) 0.02 K/uL (0.00-0.02); Immature Granulocytes % (auto) 0.2 %; Lymphocytes # (auto) 0.93 K/uL (1.2-3.4); Lymphocytes % (auto) 7.9 %; Mean Corpuscular Hemoglobin 31.4 pg (25-34); Mean Corpuscular Volume 98.2 fL (80-100); Monocytes # (auto) 0.91 K/uL (0.11-0.59); Monocytes % (auto) 7.8 %; Neutrophils # (auto) 9.83 K/uL (1.4-6.5); Neutrophils % (auto) 83.6 %; Platelet Count 172 K/uL (130-400); RDW Coefficient of Variation 14.2 % (11.5-14.5); RDW Standard Deviation 50.9 fL (36.4-46.3); Red Blood Count 3.34 M/uL (4.7-6.1); White Blood Count 11.74 K/uL (4.8-10.8)
[2021-05-21] MEDS: risperiDONE 0.5 MG TABLET PO SCH ×2 (09:07→13:45)
[2021-05-21] MEDS: CYANOCOBALAMIN 500 MCG TABLET (VITAMIN B-12) PO SCH (09:07)
[2021-05-21] MEDS: LORATADINE 10 MG TAB PO SCH (09:07)
--- NOTE | 2021-05-21 09:07 | XRay Report ---
XR chest 1V portable HISTORY: hypoxia COMPARISON: Chest 05/19/2021. FINDINGS: No pneumothorax. No pleural fusions. The cardiac silhouette is normal in size. There is pro gressive interstitial/vascular thickening with patchy perihilar airspace opacities. There is a mildly tortuous thoracic aorta. There are low lung volumes. IMPRESSION: Progressive interstitial/vascular thickening with patchy perihilar airspace opacities. This favors mi ld interstitial pulmonary edema. An atypical pneumonia could also have a similar appearance. ACT 112: Negative or not required by law. Electronically signed by: Miky Maria M.D. 05/21/2021 9:05 AM
[2021-05-21] MEDS: DIVALPROEX SODIUM SPRINKLE 125 MG CAP PO SCH ×3 (09:18→20:45)
[2021-05-21] MEDS ORDERED: FUROSEMIDE 20 MG in SYRINGE 0 ML IV ONE (10:00)
--- NOTE | 2021-05-21 11:30 | Ultrasound Report ---
BILATERAL LOWER EXTREMITY VENOUS DOPPLER HISTORY: Acute pain and swelling of the lower legs leg pain COMPARISON STUDY: None. FINDINGS: There is normal compressibility, flow, and augmentation within the bilateral lower extremit y deep venous systems. IMPRESSION: No DVT within the right or left lower extremity. ACT 112: Negative or not required by law. Electronically signed by: Dane Ellis M.D. 05/21/2021 11:29 AM
[2021-05-21] MEDS: ACETAMINOPHEN 1,000 MG/100 ML VIAL IV PRN (12:12)
--- NOTE | 2021-05-21 16:40 | Hospitalist Progress Note ---
Date of Service May 21, 2021 Assessment & Plan (1) Acute esophageal obstruction: Plan: Presenting from [facility] after a choking episode that required the Heimlich maneuver S/P EGD showed food was found in the upper third of the esophagus, in the middle third of the esophagus and in the lower third of the esophagus. large piece of Potatoes appear unchewed. removal of food was accomplished using cap Suction by Gastro and dilation of the esophageal done. Speech on board recommended moist and minced diet Continue aspiration precaution (2) Acute respiratory failure with hypoxia: Plan: Mostly due to aspiration CXR showed no acute finding WBC and lactic acid were elevated Continue IV Unasyn Continue oxygen supplement Repeat CXR showed Progressive interstitial/vascular thickening with patchy perihilar airspace opacities. Will transition to PO Augmentin on discharge Elevated Lactic acid Mostly related to hypoxia Lactic acid increase to 3, then repeat WNL Blood cx no growth Continue IV unasyn for now Will transition to PO abx Hypomagnesemia Mg on admission 1.6, replaced Mg stable (3) Dementia: Plan: -Stable, at baseline -Discharge back to [facility] (4) DVT prophylaxis: Plan: -SQ heparin Admission and Anticipated Discharge Date Admission Date: May 20, 2021 Subjective Pt was seen and examined for follow up of dysphagia Lying in bed with no acute distress Pt is calm and no aggressive behavior noted Denies any chest pain, palpitation and fever Physical Exam Physical Exam: General- No acute distress Head- atraumatic Eyes- PERRL, EOMI, ENT- oropharynx clear Neck- supple, no JVD Lungs- poor air entry Heart- regular rhythm; no murmur Abdomen- normal bowel sounds, soft, nontender Extremities- no calf tenderness Neuro- alert, awake, PERRL, EOMI; no facial palsy; no dysarthria, dementia Skin- warm & dry Results & Data Results & Data ([facility]) Vital Signs (Past 12 Hours) Vital Signs Temp Pulse Pulse Pulse Resp BP BP 05/21/21 15:17 62 05/21/21 14:59 36.9 C 55 L 18 108/59 L 05/21/21 13:39 52 L 05/21/21 11:28 36.9 C 59 L 18 121/63 05/21/21 09:39 36.9 C 70 18 101/52 L Pulse Ox 05/21/21 15:17 05/21/21 14:59 90 05/21/21 13:39 05/21/21 11:28 93 05/21/21 09:39 92
[2021-05-21] MEDS: LORazepam 0.5 MG TAB PO SCH (20:44)
[2021-05-21] MEDS: risperiDONE 1 MG TABLET PO SCH (20:44)
[2021-05-21] MEDS: ATORVASTATIN 20 MG TAB PO SCH (20:45)
[2021-05-22] MEDS: AMPICILLIN/SULBACTAM SOD 3,000 MG in 0.9 % SODIUM CHLORIDE 100 ML IV SCH ×4 (02:11→20:32)
[2021-05-22] MEDS: HEPARIN SOD 5,000 UNIT/0.5 ML VIAL SQ SCH ×3 (05:09→20:16)
[2021-05-22] MEDS: ACETAMINOPHEN 1,000 MG/100 ML VIAL IV PRN ×2 (05:29→15:36)
[2021-05-22 08:49] LABS: Hematocrit (blood only) 32.1 % (42-52); Hemoglobin 10.6 g/dL (14.0-18.0); Mean Platelet Volume 11.9 fL (7.4-10.4); Platelet Count 182 K/uL (130-400); RDW Coefficient of Variation 13.9 % (11.5-14.5); RDW Standard Deviation 49.6 fL (36.4-46.3); Red Blood Count 3.31 M/uL (4.7-6.1); White Blood Count 8.36 K/uL (4.8-10.8)
[2021-05-22] MEDS: CYANOCOBALAMIN 500 MCG TABLET (VITAMIN B-12) PO SCH (09:25)
[2021-05-22] MEDS: DIVALPROEX SODIUM SPRINKLE 125 MG CAP PO SCH ×3 (09:26→20:16)
[2021-05-22] MEDS: risperiDONE 0.5 MG TABLET PO SCH ×2 (09:26→14:09)
[2021-05-22] MEDS: LORATADINE 10 MG TAB PO SCH (09:26)
[2021-05-22 09:27] LABS: Calcium 7.9 mg/dl (8.5-10.1); Creatinine Clr Calc Pharmacy 76.7 ml/min; Est GFR (African American) 98.2 ml/min; Est GFR (Non-African American) 84.7 ml/min; Potassium 3.4 mmol/L (3.5-5.1)
--- NOTE | 2021-05-22 16:39 | Hospitalist Progress Note ---
Date of Service May 22, 2021 Assessment & Plan (1) Acute esophageal obstruction: Plan: Presenting from [facility] after a choking episode that required the Heimlich maneuver S/P EGD showed food was found in the upper third of the esophagus, in the middle third of the esophagus and in the lower third of the esophagus. Large piece of Potatoes appear unchewed. removal of food was accomplished using cap Suction by Gastro and dilation of the esophageal done. Speech on board recommended moist and minced diet Continue aspiration precaution (2) Acute respiratory failure with hypoxia: Plan: Mostly due to aspiration CXR showed no acute finding WBC and lactic acid were elevated Continue IV Unasyn Continue oxygen supplement Repeat CXR showed Progressive interstitial/vascular thickening with patchy perihilar airspace opacities. Will transition to PO Augmentin on discharge Elevated Lactic acid Mostly related to hypoxia Lactic acid increase to 3, then repeat WNL Blood cx no growth Continue IV unasyn for now Will transition to PO abx Hypomagnesemia Mg on admission 1.6, replaced Mg stable COVID 19 exposure Pt had a staff that was watching with him that tested positive for COVID 19 Currently on isolation room was informed about the exposure Will continue monitor Diarrhea Will check stool for C-Diff Continue monitor electrolytes (3) Dementia: Plan: -Stable, at baseline -Discharge back to [facility] (4) DVT prophylaxis: Plan: -SQ heparin Admission and Anticipated Discharge Date Admission Date: May 20, 2021 Subjective Pt was seen and examined for follow up of dysphagia Lying in bed with no acute distress Pt was placed on isolation because he was exposed with a staff that tested positive for COVID 19 Currently he does not have any symptoms of URI He has been having recurrent diarrhea today Spoke to over the phone and provided with updates and answered all the que stions Denies any chest pain, palpitation and fever Review of Systems Review of Systems: All systems reviewed & are unremarkable except as noted in Subjective Physical Exam Physical Exam: General- No acute distress Head- atraumatic Eyes- PERRL, EOMI, ENT- oropharynx clear Neck- supple, no JVD Lungs- poor air entry Heart- regular rhythm; no murmur Abdomen- normal bowel sounds, soft, nontender Extremities- no calf tenderness Neuro- alert, awake, PERRL, EOMI; no facial palsy; no dysarthria, dementia Skin- warm & dry Results & Data Results & Data ([facility]) Vital Signs (Past 12 Hours) Vital Signs Temp Pulse Pulse Resp BP BP Pulse Ox 05/22/21 15:20 36.5 C 54 L 16 151/80 H 94 05/22/21 12:00 36.6 C 101 H 22 121/73 96 05/22/21 07:54 47 L 20 114/54 L 96 05/22/21 07:21 46 L
[2021-05-22] MEDS: ATORVASTATIN 20 MG TAB PO SCH (20:17)
[2021-05-22] MEDS: risperiDONE 1 MG TABLET PO SCH (20:17)
[2021-05-22] MEDS: LORazepam 0.5 MG TAB PO SCH (20:33)
[2021-05-23] MEDS: AMPICILLIN/SULBACTAM SOD 3,000 MG in 0.9 % SODIUM CHLORIDE 100 ML IV SCH ×3 (03:31→14:20)
[2021-05-23] MEDS: HEPARIN SOD 5,000 UNIT/0.5 ML VIAL SQ SCH ×2 (05:27→13:12)
[2021-05-23] MEDS: risperiDONE 0.5 MG TABLET PO SCH ×2 (08:45→13:13)
[2021-05-23] MEDS: LORATADINE 10 MG TAB PO SCH (08:45)
[2021-05-23] MEDS: DIVALPROEX SODIUM SPRINKLE 125 MG CAP PO SCH ×2 (08:45→13:18)
[2021-05-23] MEDS: CYANOCOBALAMIN 500 MCG TABLET (VITAMIN B-12) PO SCH (08:45)
[2021-05-23] MEDS ORDERED: amLODIPine BESYLATE 5 MG TAB PO SCH (10:00)
[2021-05-23 11:02] LABS: BUN Creatinine Ratio 22.7 (10-20); Calcium 8.7 mg/dl (8.5-10.1); Creatinine Clr Calc Pharmacy 81.1 ml/min; Est GFR (African American) 100.4 ml/min; Est GFR (Non-African American) 86.7 ml/min; Potassium 3.7 mmol/L (3.5-5.1)
== END 2021-05-23 15:51 | DRG 391 ==
LOC: ED 13:23 → 2N 17:31 → OR 17:31 → 2N 17:41